=== PATIENT | male | born 1965 | race Caucasian/White ===

== ENCOUNTER 2019-09-16 09:49 | Inpatient (IN) | payer OTHER ==
[2019-09-16] MEDS ORDERED: SODIUM CHLORIDE 2,449 ML IV ONE (09:59)
--- NOTE | 2019-09-16 10:36 | EKG ---
Test Reason : Blood Pressure : / mmHG Vent. Rate : 102 BPM Atrial Rate : 102 BPM P-R Int : 132 ms QRS Dur : 072 ms QT Int : 340 ms P-R-T Axes : 064 037 036 degrees QTc Int : 443 ms SINUS TACHYCARDIA OTHERWISE NORMAL ECG NO PREVIOUS ECGS AVAILABLE Confirmed by Benjy Sam MD ([id number]) on 09/16/2019 10:35:37 AM Referred By: Confirmed By:Benjy Sam MD
[2019-09-16] MEDS ORDERED: morphine CARPU-JECT 8 MG/1 ML DISP.SYRIN IVPUSH ONE ×2 (10:41→13:01)
[2019-09-16] MEDS ORDERED: PIPERACILLIN/TAZOB 3.375 GM 3.375 GM in DEXTROSE 5%-WATER - 50 ML IVPB ONE (10:42)
[2019-09-16] MEDS ORDERED: VANCOMYCIN HCL 1,250 MG in DEXTROSE 5%-WATER - 250 ML IVPB ONE (10:42)
[2019-09-16] MEDS ORDERED: LACTATED RINGERS SOLUTION 1,000 ML/1,000 ML INFUS.BAG IV STA ×2 (10:44→16:30)
[2019-09-16] MEDS ORDERED: morphine SULFATE 4 MG/ML VIAL ONE ×2 (11:04→13:01)
[2019-09-16] MEDS ORDERED: MORPHINE SULFATE 2 MG/ML VIAL ONE ×3 (11:05→23:14)
[2019-09-16] MEDS ORDERED: PIPERACILLIN/TAZOB 3.375 GM 3.375 GM/50 ML BAG IVPB ONE ×2 (11:05→17:34)
[2019-09-16 11:49] LABS: BASO % 0.4 % (0-2.0); EOS % 0.1 % (0-4.5); HEMATOCRIT 30.1 % (35.4-49); HEMOGLOBIN 9.6 GM/dL (11.7-16.9); LYMPH % 7.6 % (8-40); MCH 26.7 pg (25.7-33.7); MCHC 31.9 g/dl (32.0-35.9); MEAN CELL VOLUME 83.7 fl (80-96); MEAN PLT VOLUME 6.8 fl (7.5-11.1); MONO % 3.7 % (3.8-10.2); NEUT % 88.2 % (42.8-82.8); PLATELET COUNT 390 K/MM3 (134-434); RDW 14.7 % (11.9-15.9); WHITE BLOOD COUNT 10.9 K/mm3 (4.0-10.0)
[2019-09-16 11:51] LABS: VENOUS O2 SATURATION 88.5 % (70-80); VENOUS PCO2 39.4 mmHg (38-52); VENOUS PH 7.397 (7.310-7.410)
--- NOTE | 2019-09-16 11:53 | PDOC ---
Documentation entered by Jessica Savage SCRIBE, acting as scribe for Beverley Yap MD. Beverley Yap MD: This documentation has been prepared by the Janette crocker Adrianna, SCRIBE, under my direction and personally reviewed by me in its entirety. I confirm that the documentation accurately reflects all work, treatment, procedures, and medical decision making performed by me. History of Present Illness - General Chief Complaint: Wound Stated Complaint: SENT FROM WOUND CARE - History of Present Illness Initial Comments: The patient is a 54 year old male, with a significant PMH of DM, peripheral vascular disease, HTN (compliant with daily meds), HLD, diverticulitis, EtOH dependence, sedative dependence, nicotine dependence, Hep C ab positive, and substance induced sleep disorder, who presents to the ED from Wound Care for evaluation of multiple abscesses. Patient complains of bilateral inguinal herni as with multiple bilateral inguinal abscesses that travel to underneath his scrotum. He states he has had these for a few weeks, and were first recognized by his PCP. He additionally complains of a tender buttocks that has a left-sided buttock abscess which he developed the past few days. Upon evaluation, the abscess began draining ~30cc unprovoked. He notes he has not been on any antibiotics at this time, and took tramadol last night for his pain . Patient has been following up with his PCP regularly for management of these complaints, who referred him to a surgical consult. Surgery stated no operative care would be pursued for his inguinal hernias until the abscesses were treated. Patients PCP advised the patient to come to the ED for CTAP and admission to the hospitalist. He endorses a fever at this time, but otherwise denies any other complaints. Denies cough, chest pain, shortness of breath, abdominal pain, nausea, vomit. Allergies: NKA, NKDA Surgical History: Colon resection for diverticulitis in 2007 Social History: EtOH dependence, sedative dependence, nicotine dependence PCP: Dr. Cueva Past History - Medical History Allergies/Adverse Reactions: Allergies Allergy/AdvReac Type Severity Reaction Status Date / Time No Known Allergies Allergy Verified 09/16/19 09:52 Home Medications: Ambulatory Orders Glipizide [Glipizide ER] 4 mg PO DAILY 01/19/14 Lisinopril [Prinivil -] 20 mg PO DAILY 01/19/14 Trazodone HCl 700 mg PO HS 01/19/14 Amlodipine Besylate 10 mg PO DAILY 09/16/19 Aspirin 81 mg PO DAILY 09/16/19 Atorvastatin Ca 40 mg PO HS 09/16/19 Invokana 100 mg PO DAILY 09/16/19 Metformin HCl 1,000 mg PO BID 09/16/19 Anemia: No Asthma: No Cancer: No Cardiac Disorders: No CVA: No COPD: No CHF: No Dementia: No Diabetes: Yes GI Disorders: Yes (diverticulitis) Disorders: No HTN: Yes Hypercholesterolemia: Yes Kidney Stones: No Liver Disease: No Seizures: No Thyroid Disease: No - Surgical History Abdominal Surgery: Yes (Colon resection for diverticulitis in 2007) - Reproductive History Testicular Surgery: No - Immunization History Immunization Up to Date: Yes - Psycho-Social/Smoking History Smoking History: Never smoked Have you smoked in the past 12 months: Yes Number of Cigarettes Smoked Daily: 20 'Breaking Loose' booklet given: 01/19/14 - Substance Abuse Hx (Audit-C & DAST Scrn) How often the patient has a drink containing alcohol: Never Score: In Men: 4 or > Positive; In Women: 3 or > Positive: 0 Screen Result (Pos requires Nsg. Audit-10AR): Negative In the last yr the pt used illegal drug/Rx for NonMed reason: No Score: Yes response is considered Positive: 0 Screen Result (Positive result requires Nsg. DAST-10): Negative Review of Systems - Review of Systems Able to Perform ROS?: Yes Comments:: GENERAL/CONSTITUTIONAL: +Fever. No chills. No weakness. HEAD, EYES, EARS, NOSE AND THROAT: No change in vision. No ear pain or discharge. No sore throat. CARDIOVASCULAR: No chest pain or shortness of breath. RESPIRATORY: No cough, wheezing, or hemoptysis. GASTROINTESTINAL: No nausea, vomiting, diarrhea or constipation. GENITOURINARY: +Multiple bilateral inguinal abscesses that travel to underneath his scrotum. +Bilateral inguinal hernias. No dysuria, frequency, or change in urination. MUSCULOSKELETAL: No joint or muscle swelling or pain. No neck or back pain. SKIN: multiple abscesses NEUROLOGIC: No headache, vertigo, loss of consciousness, or change in strength/sensation. ENDOCRINE: No increased thirst. No abnormal weight change. HEMATOLOGIC/LYMPHATIC: No anemia, easy bleeding, or history of blood clots. ALLERGIC/IMMUNOLOGIC: No hives or skin allergy. *Physical Exam - Vital Signs Last Vital Signs Temp Pulse Resp BP Pulse Ox 99.6 F 121 H 20 123/72 99 09/16/19 09:52 09/16/19 09:52 09/16/19 09:52 09/16/19 09:52 09/16/19 09:52 - Physical Exam 09/16/19 11:43 GENERAL: NAD HEAD: NCAT EYES: EOMI, sclera anicteric, conjunctiva clear ENT: nares patent, oropharynx clear without exudates. MMM NECK: Normal ROM, supple LUNGS: CTAB. Good air entry. No wheezes, No Rhonchi and no crackles HEART:tachy, + s1 s2 ABDOMEN: Soft, nontender, normoactive bowel sounds. No guarding, no rebound. No masses BACK: no midline or paraspinal tenderness. No CVA tenderness. GENITAL: multiple inguinal abscesses with some extending to perineum and mons and L medial aspect of upper thigh, no crepitus, no acitve drainage, +ttp EXTREMITIES: Warm and well perfused. No LE edema. FROM. No clubbing or cyanosis. No cords, erythema, or tenderness NEUROLOGICAL: Aox3, Speech fluent, face symmetric, tongue/uvula midline. Sensation grossly intact to light touch. No focal deficits. SKIN: ~[id number] area of induration to L buttocks with >6 cm of fluctuance with opening, during in exam began spontaneously draining ~30ccs of foul smelling purulent drainage Heart Score/ECG Review - ECG Impressions Comment:: ECG performed at 10:12 on 09/16/19 demonstrates sinus tachycardia at 102bpm. Otherwise normal ECG. ED Treatment Course - LABORATORY CBC & Chemistry Diagram: 09/16/19 10:20 09/16/19 10:20 - RADIOLOGY Radiograph Interpretation: EXAM#: TYPE/EXAM: RESULT: [id number] RAD/CHEST PA LAT Clinical information: Preadmission. Impression Unremarkable examination without evidence of acute lung disease. Reported By: Beverly Banks MD 09/16/19 11:52 EXAM#: TYPE/EXAM: RESULT: [id number] CT/ABDOMEN PELVIS CT WITH CONTR Abdomen and pelvis CT with contrast Clinical information given: abscesses r/o fistula/emma IMPRESSION: An 8 x 7 x 4 cm left buttock subcutaneous abscess is seen. Cutaneous and superficial subcutaneous soft tissue thickening is noted along the inguinal creases bilaterally as well as along the peritoneum bilaterally. Right inguinal hernia containing fat only. Mild splenomegaly. At least moderate atherosclerotic vascular calcifications. Reported By: Naseem Webber MD 09/16/19 16:00 Medical Decision Making - Critical Care Time Total Critical Care Time (minutes): 30 Critical Care Statement: The care of this patient involved high complexity decision making to prevent further life threatening deterioration of the patient's condition and/or to evaluate & treat vital organ system(s) failure or risk of failure. - Medical Decision Making 09/16/19 11:48 54 yo M here with likely sepsis (oral temp 99 but patient reports temp was 100 at wound care immediately prior to being seen) 2/2 abscess, concern for deeper space infection given multiple inguinal abscesses and suspicion for hydraadenitis and patient with systemic signs of infection. Plan: -labs -urine -wound culture sent -blood cultures -COVID testing -cxr -CT a/p -IVF -pain control as needed -vanc -zosyn -admit This clinical encounter is taking place during a federal and state health care emergency attributable to the novel Oliver Virus pandemic. The [employer] of the Department of Health and Human Services has declared, pursuant to the Public Health Service Act 319F-3 (42 U.S.C. 247d-6d), that a covered persons activities related to medical countermeasures against COVID-19 will be immune from liability under Federal and State law. 09/16/19 16:15 Labs and imaging reviewed. Repeat lactate pending. Dr. Guzmán (general surgery spine surgeon) consulted as per PMD request. Patient admitted to [facility]. Discharge - Discharge Information Problems reviewed: Yes Clinical Impression/Diagnosis: Sepsis Qualifiers: Sepsis type: sepsis due to unspecified organism Sepsis acute organ dysfunction status: unspecified Qualified Code(s): A41.9 - Sepsis, unspecified organism Condition: Stable - Admission Yes - Follow up/Referral Referrals: Xochitl Cueva MD [Primary Care Provider] - - Patient Discharge Instructions - Post Discharge Activity
[2019-09-16 12:13] LABS: ALBUMIN 2.6 g/dl (3.4-5.0); BILIRUBIN,TOTAL 0.6 mg/dL (0.2-1); BLOOD UREA NITROGEN 9.1 mg/dL (7-18); CALCIUM 8.6 mg/dL (8.5-10.1); POTASSIUM 4.4 mmol/L (3.5-5.1); TOT PROT 7.7 g/dl (6.4-8.2)
[2019-09-16] MEDS ORDERED: ACETAMINOPHEN INJECTION 100 ML IVPB ONE (13:01)
[2019-09-16 16:23] LABS: PH,URINE 5.5 (5.0-8.0); URINE APPEARANCE CLEAR; URINE BILIRUBIN NEGATIVE (NEGATIVE); URINE COLOR YELLOW; URINE GLUCOSE (UA) 1+ (NEGATIVE); URINE KETONE NEGATIVE (NEGATIVE); URINE LEUK ESTERASE NEGATIVE (NEGATIVE); URINE NITRITE NEGATIVE (NEGATIVE); URINE PROTEIN TRACE (NEGATIVE); URINE UROBILINOGEN 0.2 mg/dL (0.2-1.0)
[2019-09-16] MEDS ORDERED: HYDROmorphone HCL CARPU-JECT 2 MG/1 ML DISP.SYRIN IVPUSH ONE (16:34)
[2019-09-16] MEDS ORDERED: HYDROmorphone HCl 2 MG/ML VIAL ONE (16:46)
--- NOTE | 2019-09-16 17:06 | HP ---
CHIEF COMPLAINT: SENT BY PCP FOR FURTHER EVAL PCP: MARAH HISTORY OF PRESENT ILLNESS: The patient is a 54 year old male, with a DM, peripheral vascular disease, HTN (compliant with daily meds), HLD, diverticulitis, hx of alcohol dependence, sedative dependence, nicotine dependence, Hep C ab positive, and substance induced sleep disorder, who presents to the ED from Wound Care for evaluation of multiple abscesses. Patient complains of bilateral inguinal hernias with multiple bilateral inguinal abscesses that travel to underneath his scrotum. He states he has had these for a few weeks, and were first recognized by his PCP. Pt reports the pain progressively worsening over the past few days, and noted draibage from the area in the last 24 hours. He additionally complains of a tender buttocks that has a left-sided buttock abscess which he developed the past few days. In Ed, pt was noted to have drai nage from the left buttock wound on own. He was advised by his pcp to come to the ED for admission and further imaging Denies cough, chest pain, shortness of breath, abdominal pain, nausea, vomit. Denies any fevers or chills ER course was notable for: (1) rising lactate from 2 to now over 7 (2) left buttock abscess with active drainage (3) Recent Travel: PAST MEDICAL HISTORY: DM, PAD, HTN, HL, ALCOHOL DEPENDENCE, HEP C POSITIVE PAST SURGICAL HISTORY: S/P COLON RESECTION FOR DIVERTICULITIS Social History: Smoking: POS Former smoking hx, states he quit 1 year ago Alcohol: POS DAILY ALCOHOL USE AND DEPENDENCE in the past, no alcohol use per pt in 4-5 years Drugs: denies Allergies No Known Allergies Allergy (Verified 09/16/19 09:52) HOME MEDICATIONS: Home Medications Medication Instructions Recorded Glipizide [Glipizide ER] 4 mg PO DAILY 01/19/14 Lisinopril [Prinivil -] 20 mg PO DAILY 01/19/14 Trazodone HCl 700 mg PO HS 01/19/14 Amlodipine Besylate 10 mg PO DAILY 09/16/19 Aspirin 81 mg PO DAILY 09/16/19 Atorvastatin Ca 40 mg PO HS 09/16/19 Invokana 100 mg PO DAILY 09/16/19 Metformin HCl 1,000 mg PO BID 09/16/19 REVIEW OF SYSTEMS CONSTITUTIONAL: Absent: fever, chills, diaphoresis, generalized weakness, malaise, loss of appetite, weight change HEENT: Absent: rhinorrhea, nasal congestion, throat pain, throat swelling, difficulty swallowing, mouth swelling, ear pain, eye pain, visual changes CARDIOVASCULAR: Absent: chest pain, syncope, palpitations, irregular heart rate, lightheadedness, peripheral edema RESPIRATORY: Absent: cough, shortness of breath, dyspnea with exertion, orthopnea, wheezing, stridor, hemoptysis GASTROINTESTINAL: Absent: abdominal pain, abdominal distension, nausea, vomiting, diarrhea, constipation, melena, hematochezia GENITOURINARY: Absent: dysuria, frequency, urgency, hesitancy, hematuria, flank pain, genital pain MUSCULOSKELETAL: Absent: myalgia, arthralgia, joint swelling, back pain, neck pain SKIN: Absent: rash, itching, pallor POS LEFT BUTTOCK AND REJI GROIN PAIN, DRAINAGE FROM THE LEFT BUTTOCK WOUND HEMATOLOGIC/IMMUNOLOGIC: Absent: easy bleeding, easy bruising, lymphadenopathy, frequent infections ENDOCRINE: Absent: unexplained weight gain, unexplained weight loss, heat intolerance, cold intolerance NEUROLOGIC: Absent: headache, focal weakness or paresthesias, dizziness, unsteady gait, seizure, mental status changes, bladder or bowel incontinence PSYCHIATRIC: Absent: anxiety, depression, suicidal or homicidal ideation, hallucinations. PHYSICAL EXAMINATION Vital Signs - 24 hr 09/16/19 09/16/19 09/16/19 09:52 11:41 12:03 Temperature 99.6 F 99.4 F Pulse Rate 121 H 79 Pulse Rate [ Radial] Respiratory 20 20 Rate Blood Pressure 123/72 102/56 L Blood Pressure [Left Arm] O2 Sat by Pulse 99 99 99 Oximetry (%) 09/16/19 16:15 Temperature Pulse Rate Pulse Rate [ 69 Radial] Respiratory 20 Rate Blood Pressure Blood Pressure 134/67 [Left Arm] O2 Sat by Pulse 94 L Oximetry (%) GENERAL: Awake, alert, and fully oriented, in no acute distress. HEAD: Normal with no signs of trauma. EYES: extraocular movements intact, sclera anicteric, conjunctiva clear. No lid lag. EARS, NOSE, THROAT: Ears normal, nares patent, oropharynx clear without exudates. Moist mucous membranes. NECK: Normal range of motion, supple LUNGS: Breath sounds equal, clear to auscultation bilaterally. No wheezes, and no crackles. No accessory muscle use. DECREASED BS REJI HEART: Regular rate and rhythm, normal S1 and S2 without murmur, rub or gallop. ABDOMEN: Soft, nontender, not distended, normoactive bowel sounds, no guarding, no rebound, no masses. No hepatomegaly or splenomegaly. MUSCULOSKELETAL: Normal range of motion at all joints. No bony deformities or tenderness. No CVA tenderness. UPPER EXTREMITIES: 2+ pulses, warm, well-perfused. No cyanosis. No clubbing. No peripheral edema. LOWER EXTREMITIES: 2+ pulses, warm, well-perfused. No calf tenderness. No peripheral edema. NEUROLOGICAL: Cranial nerves II-XII intact. Normal speech. DID NOT ASSESS GAIT, BEING RULED OUT FOR COVID PSYCHIATRIC: Cooperative. Good eye contact. Appropriate mood and affect. SKIN: Warm, dry, normal turgor, no rashes noted, normal capillary refill. POS LEFT BUTTOCK ABSCESS WITH ACTIVE BLOODY AND SOME PURULENT DRAINAGE POS REJI HYDRADENITIS IN GROINS Laboratory Results - last 24 hr 09/16/19 09/16/19 09/16/19 10:20 10:20 10:20 WBC RBC Hgb Hct MCV MCH MCHC RDW Plt Count MPV Absolute Neuts (auto) Neutrophils % Lymphocytes % Monocytes % Eosinophils % Basophils % Nucleated RBC % PTT (Actin FS) 26.3 VBG pH POC VBG pCO2 POC VBG pO2 VBG HCO3 VBG O2 Sat (Silver) VBG Base Excess Sodium 132 L Potassium 4.4 Chloride 97 L Carbon Dioxide 26 Anion Gap 9 BUN 9.1 Creatinine 1.0 Est GFR (CKD-EPI)AfAm 97.08 Est GFR (CKD-EPI)NonAf 83.76 Random Glucose 271 H Lactic Acid 2.1 H Calcium 8.6 Total Bilirubin 0.6 AST 10 L ALT 10 L Alkaline Phosphatase 64 Total Protein 7.7 Albumin 2.6 L Urine Color Urine Appearance Urine pH Ur Specific Points Urine Protein Urine Glucose (UA) Urine Ketones Urine Blood Urine Nitrite Urine Bilirubin Urine Urobilinogen Ur Leukocyte Esterase Blood Type Antibody Screen 09/16/19 09/16/19 09/16/19 10:20 10:20 10:50 WBC 10.9 H RBC 3.60 L Hgb 9.6 L Hct 30.1 L D MCV 83.7 MCH 26.7 D MCHC 31.9 L RDW 14.7 Plt Count 390 D MPV 6.8 L D Absolute Neuts (auto) 9.6 H Neutrophils % 88.2 H Lymphocytes % 7.6 L Monocytes % 3.7 L Eosinophils % 0.1 Basophils % 0.4 Nucleated RBC % 0 PTT (Actin FS) VBG pH 7.397 POC VBG pCO2 39.4 POC VBG pO2 54.7 H VBG HCO3 23.7 VBG O2 Sat (Silver) 88.5 H VBG Base Excess -1.0 Sodium Potassium Chloride Carbon Dioxide Anion Gap BUN Creatinine Est GFR (CKD-EPI)AfAm Est GFR (CKD-EPI)NonAf Random Glucose Lactic Acid Calcium Total Bilirubin AST ALT Alkaline Phosphatase Total Protein Albumin Urine Color Urine Appearance Urine pH Ur Specific Points Urine Protein Urine Glucose (UA) Urine Ketones Urine Blood Urine Nitrite Urine Bilirubin Urine Urobilinogen Ur Leukocyte Esterase Blood Type AB POSITIVE Antibody Screen Negative 09/16/19 09/16/19 14:00 14:57 WBC RBC Hgb Hct MCV MCH MCHC RDW Plt Count MPV Absolute Neuts (auto) Neutrophils % Lymphocytes % Monocytes % Eosinophils % Basophils % Nucleated RBC % PTT (Actin FS) VBG pH POC VBG pCO2 POC VBG pO2 VBG HCO3 VBG O2 Sat (Silver) VBG Base Excess Sodium Potassium Chloride Carbon Dioxide Anion Gap BUN Creatinine Est GFR (CKD-EPI)AfAm Est GFR (CKD-EPI)NonAf Random Glucose Lactic Acid 7.7 H* Calcium Total Bilirubin AST ALT Alkaline Phosphatase Total Protein Albumin Urine Color Yellow Urine Appearance Clear Urine pH 5.5 Ur Specific Points 1.023 Urine Protein Trace Urine Glucose (UA) 1+ H Urine Ketones Negative Urine Blood Negative Urine Nitrite Negative Urine Bilirubin Negative Urine Urobilinogen 0.2 Ur Leukocyte Esterase Negative Blood Type Antibody Screen CT ABD/PELVIS: LEFT SC BUTTOCK ABSCESS SPLENOMEGALY AORTIC CALCIFICATIONS INGUINAL HERNIA CONTAINING FAT EKG: ST@102 BPM CXR: [facility]D ASSESSMENT/PLAN: 54 Y/O MALE WITH THE ABOVE MED HX ADMITTED WITH SEPSIS SECONDARY TO LEFT BUTTOCK ABSCESS *SEPSIS - SECONDARY TO ABSCESS SURGERY EVAL FOR DRAINAGE VANC AND ZOSYN, BLOOD CULTURES DRAWN LACTACTE RISING, WILL BOLUS FLUIDS NOW AND HYDRATE MORE AGGRESSIVELY AFEBRILE *TOBACCO AND ALCOHOL USE -- PT DENIES ANY RECENT USE, MONITOR FOR ANY SIGNS OF WITHDRAWAL *DM: HOLD ORAL AGENTS,PLACE ON ISS *HTN - BP CURRENTLY STABLE NORVASC AND LISINOPRIL WITH BP PARAMETERS *DVT PROPHY - LOVENOX DAILY AWAIT COVID RESULTS Family Medical History Family Hx Cancer: Father (LUNG CANCER) Problem List - Problem (1) Sepsis Code(s): A41.9 - SEPSIS, UNSPECIFIED ORGANISM Qualifiers: Sepsis type: sepsis due to unspecified organism Sepsis acute organ dysfunction status: unspecified Qualified Code(s): A41.9 - Sepsis, unspecified organism (2) DM type 2 (diabetes mellitus, type 2) Code(s): E11.9 - TYPE 2 DIABETES MELLITUS WITHOUT COMPLICATIONS (3) Abscess and cellulitis of gluteal region Code(s): L02.31 - CUTANEOUS ABSCESS OF BUTTOCK; L03.317 - CELLULITIS OF BUTTOCK Visit type - Emergency Visit Emergency Visit: Yes ED Registration Date: 09/16/19 Care time: The patient presented to the Emergency Department on the above date and was hospitalized for further evaluation of their emergent condition. - New Patient This patient is new to me today: Yes Date on this admission: 09/16/19 - Critical Care Critical Care patient: No
[2019-09-16] MEDS ORDERED: ENOXAPARIN NA (PORCINE) 40 MG/0.4 ML DISP.SYRIN SQ ONE (17:33)
[2019-09-16] MEDS: ENOXAPARIN NA (PORCINE) 40 MG/0.4 ML DISP.SYRIN SQ SCH (17:45)
[2019-09-16] MEDS: PIPERACILLIN/TAZOB 3.375 GM 3.375 GM in DEXTROSE 5%-WATER - 50 ML IVPB SCH (17:45)
[2019-09-16] MEDS ORDERED: SODIUM CHLORIDE 0.9% 500 ML INFUS.BAG IV STA (18:35)
[2019-09-16] MEDS: SODIUM CHLORIDE 1,000 ML IV SCH (19:15)
[2019-09-16] MEDS: MORPHINE SULFATE 2 MG/ML VIAL IVPUSH PRN (22:25)
[2019-09-16] MEDS: INSULIN SLIDING SCALE (NOVOLOG) 1 VIAL SQ SCH (22:34)
[2019-09-16] MEDS ORDERED: ACETAMINOPHEN 1000 MG/100 ML VIAL (NON FORMULARY) IVPB PRN (22:50)
[2019-09-16] MEDS ORDERED: KETOROLAC TROMETHAMINE 15 MG/ML VIAL IVPUSH PRN (22:50)
[2019-09-16] MEDS ORDERED: MORPHINE SULFATE 2 MG/ML VIAL IVPUSH ONE (22:51)
[2019-09-17 01:39] VITALS: BMI 26.4
[2019-09-17] MEDS: MORPHINE SULFATE 2 MG/ML VIAL IVPUSH PRN ×3 (02:10→14:21)
[2019-09-17] MEDS ORDERED: DEXTROSE 5%-WATER - 50 ML IVPB ONE ×3 (02:32→18:00)
[2019-09-17] MEDS ORDERED: PIPERACILLIN/TAZOBACTAM 3.375 GM VIAL IVPB ONE ×3 (02:32→18:00)
[2019-09-17] MEDS: PIPERACILLIN/TAZOB 3.375 GM 3.375 GM in DEXTROSE 5%-WATER - 50 ML IVPB SCH ×3 (02:56→18:07)
[2019-09-17] MEDS: INSULIN SLIDING SCALE (NOVOLOG) 1 VIAL SQ SCH ×4 (06:12→22:29)
[2019-09-17] MEDS: ATORVASTATIN CA 40 MG TABLET (FP) PO SCH ×2 (07:22→22:31)
[2019-09-17 08:10] LABS: HEMATOCRIT 23.3 % (35.4-49); HEMOGLOBIN 7.5 GM/dL (11.7-16.9); MCH 26.9 pg (25.7-33.7); MCHC 32.1 g/dl (32.0-35.9); MEAN CELL VOLUME 83.7 fl (80-96); MEAN PLT VOLUME 6.3 fl (7.5-11.1); PLATELET COUNT 255 K/MM3 (134-434); RBC 2.79 M/mm3 (4.00-5.60); RDW 14.6 % (11.9-15.9); WHITE BLOOD COUNT 6.3 K/mm3 (4.0-10.0)
[2019-09-17 08:23] LABS: BLOOD UREA NITROGEN 11.1 mg/dL (7-18); CALCIUM 7.8 mg/dL (8.5-10.1); CREATININE 0.8 mg/dL (0.55-1.3); POTASSIUM 4.3 mmol/L (3.5-5.1)
--- NOTE | 2019-09-17 09:35 | PN ---
Teaching Attending Note Name of Resident: Pablo Hamilton ATTENDING PHYSICIAN STATEMENT I saw and evaluated the patient. I reviewed the resident's note and discussed the case with the resident. I agree with the resident's findings and plan as documented. SUBJECTIVE: Patient is asking for more pain medication. He states his pain is 8/10 OBJECTIVE: Vital Signs Temperature 98.7 F 09/17/19 06:53 Pulse Rate 88 09/17/19 06:53 Respiratory Rate 20 09/17/19 06:53 Blood Pressure 113/60 09/17/19 06:53 O2 Sat by Pulse Oximetry (%) 96 09/17/19 01:47 Initial Vital Signs Temp Pulse Resp BP Pulse Ox 99.6 F 121 H 20 123/72 99 09/16/19 09:52 09/16/19 09:52 09/16/19 09:52 09/16/19 09:52 09/16/19 09:52 PE:per resident's note BL groin hydraadenetis ( no active drainage) draining open left buttock abscess CBCD WBC 6.3 K/mm3 (4.0-10.0) 09/17/19 07:10 RBC 2.79 M/mm3 (4.00-5.60) L 09/17/19 07:10 Hgb 7.5 GM/dL (11.7-16.9) L 09/17/19 07:10 Hct 23.3 % (35.4-49) L D 09/17/19 07:10 MCV 83.7 fl (80-96) 09/17/19 07:10 MCHC 32.1 g/dl (32.0-35.9) 09/17/19 07:10 RDW 14.6 % (11.9-15.9) 09/17/19 07:10 Plt Count 255 K/MM3 (134-434) D 09/17/19 07:10 MPV 6.3 fl (7.5-11.1) L 09/17/19 07:10 CMP Sodium 139 mmol/L (136-145) 09/17/19 07:10 Potassium 4.3 mmol/L (3.5-5.1) 09/17/19 07:10 Chloride 107 mmol/L (98-107) 09/17/19 07:10 Carbon Dioxide 23 mmol/L (21-32) 09/17/19 07:10 Anion Gap 9 MMOL/L (8-16) 09/17/19 07:10 BUN 11.1 mg/dL (7-18) 09/17/19 07:10 Creatinine 0.8 mg/dL (0.55-1.3) 09/17/19 07:10 Random Glucose 127 mg/dL (74-106) H 09/17/19 07:10 Calcium 7.8 mg/dL (8.5-10.1) L 09/17/19 07:10 Total Bilirubin 0.6 mg/dL (0.2-1) 09/16/19 10:20 AST 10 U/L (15-37) L 09/16/19 10:20 ALT 10 U/L (13-61) L 09/16/19 10:20 Alkaline Phosphatase 64 U/L (45-117) 09/16/19 10:20 Total Protein 7.7 g/dl (6.4-8.2) 09/16/19 10:20 Albumin 2.6 g/dl (3.4-5.0) L 09/16/19 10:20 Current Medications Generic Name Dose Route Start Last Admin Trade Name Freq PRN Reason Stop Dose Admin Acetaminophen 650 mg 09/16/19 17:14 Tylenol - PO Q4H PRN FEVER Acetaminophen 1,000 mg 09/16/19 22:50 Ofirmev Injection - IVPB 09/17/19 22:50 Q6H PRN PAIN LEVEL 6-10 Amlodipine Besylate 10 mg 09/17/19 10:00 Norvasc - PO DAILY [facility] Aspirin 81 mg 09/17/19 10:00 Ecotrin - PO DAILY [facility] Atorvastatin Calcium 40 mg 09/16/19 23:45 09/17/19 07:22 Lipitor - PO Not Given HS ADRIA Enoxaparin Sodium 40 mg 09/16/19 17:30 09/16/19 17:45 Lovenox - SQ 40 mg DAILY [facility] Administration Hydromorphone HCl 1 mg 09/16/19 18:45 Dilaudid Injection - IVPUSH Q8H ADRIA Piperacillin Sod/Tazobactam 50 mls @ 100 mls/hr 09/17/19 10:00 Sod 3.375 gm/ Dextrose IVPB Q8H-IV ADRIA Protocol Sodium Chloride 1,000 mls @ 100 mls/hr 09/16/19 18:45 09/16/19 19:15 Normal Saline - IV 100 mls/hr ASDIR ADRIA Administration Insulin Aspart 1 vial 09/16/19 22:00 09/17/19 06:12 Novolog Vial Sliding Scale - SQ Not Given ACHS [facility] Protocol Lisinopril 20 mg 09/17/19 10:00 Prinivil PO DAILY ADRIA Morphine Sulfate 2 mg 09/16/19 17:14 09/17/19 06:10 Morphine Sulfate IVPUSH 2 mg Q4H PRN Administration PAIN LEVEL 6-10 Non-Formulary Medication 700 mg 09/17/19 22:00 Trazodone Hcl [Trazodone Hcl] PO HS [facility] Microbiology 09/16/19 10:20 Abscess Gram Stain - Final Laboratory Tests 09/16/19 09/16/19 09/16/19 10:20 10:20 10:20 WBC 10.9 H Lactic Acid 2.1 H COVID-19 ([facility]) Pending 09/16/19 09/16/19 09/17/19 14:57 22:05 06:00 WBC Lactic Acid 7.7 H* 2.2 H* 1.9 COVID-19 ([facility]) CT ABD/PELVIS: 8x7x4 cm LEFT SC BUTTOCK ABSCESS, cutaneous superficial sq soft tissue thickening is noted along the inguinal creases bl as well as along the peritoneum Bilaterally. No abvious fistula is noted mild SPLENOMEGALY moderate atherosclerotic vascular CALCIFICATIONS Right INGUINAL HERNIA CONTAINING FAT EKG: ST@102 BPM CXR: [facility] ASSESSMENT/PLAN: This patient is a 54yom with PMhx of T2DM, PVD,HTN,NLD, diverticulitis , alcohol ,sedative, nicotine dependency,Hep C ab positive, admitted for sepsis with left Buttock abscess from Wound Care for evaluation of multiple abscesses in ED. # Sepsis due to multiple abscesses; on IV antibiotics, vanco and zosyn, follow wcx, bcx, ucx., ID onthe case, will like to get HIV testing on this patient. #hydraadenetis bilaterally bl inguinal area ( no drainage) : surgical and ID consult for I&D and antibiotic management. IVF continue #T2DM on SS with coverage for now, hold po meds #HTN controlled: on Lisinopril and norvsc continue # tobacco and ETOH dependency: NO RECENT USE #Covid Pending DVT PROPHY - LOVENOX SQ
[2019-09-17] MEDS ORDERED: PATIENT'S OWN MEDICATION (NON-FORMULARY) (Aspirin 81 MG) PO SCH (10:00)
[2019-09-17] MEDS ORDERED: PATIENT'S OWN MEDICATION (NON-FORMULARY) (Amlodipine Besylate 10 MG) PO SCH (10:00)
[2019-09-17] MEDS ORDERED: PIPERACILLIN/TAZOB 3.375 GM 3.375 GM in DEXTROSE 5%-WATER - 50 ML IVPB SCH (10:00)
[2019-09-17] MEDS ORDERED: HYDROmorphone HCl 2 MG/ML VIAL IVPB PRN (10:15)
[2019-09-17] MEDS: ASPIRIN COATED 81 MG TABLET.EC PO SCH (10:15)
[2019-09-17] MEDS: amLODIPine BESYLATE 10 MG TABLET (FP) PO SCH (10:16)
[2019-09-17] MEDS: LISINOPRIL 20 MG TABLET (FP) PO SCH (10:16)
[2019-09-17] MEDS: ENOXAPARIN NA (PORCINE) 40 MG/0.4 ML DISP.SYRIN SQ SCH (10:16)
[2019-09-17] MEDS ORDERED: VANCOMYCIN 1 GRAM (PRE-DOCKED) 1,000 MG/250 ML BAG IVPB ONE (11:15)
[2019-09-17] MEDS ORDERED: PIPERACILLIN/TAZOB 3.375 GM 3.375 GM in DEXTROSE 5%-WATER - 50 ML IVPB ONE (11:16)
--- NOTE | 2019-09-17 12:46 | CON.ID ---
Consult Consult Specialty:: infectious diseases Referred by:: Reason for Consultation:: left gluteal abscess - History of Present Illness Chief Complaint: pain and swelling with cellulitis of the left glueteal region History of Present Illness: 54 year old male, with a DM, peripheral vascular disease, HTN , HLD, diverticu litis, hx of alcohol dependence, sedative dependence, nicotine dependence, Hep C ab positive, and substance induced sleep disorder, who presents from [facility] for evaluation of multiple abscesses. Patient complains of bilateral inguinal hernias with multiple bilateral inguinal abscesses that travel to underneath his scrotum. He states he has had these for a few weeks, and were first recognized by his PCP. Pt reports the pain progressively worsening over the past few days, and noted drainage from the area in the last 24 hours. He additionally complains of a tender buttocks that has a left-sided buttock abscess which he developed the past few days. drainage from the left buttock wound on own. He was advised by his pcp to come to the ED for admission and further imaging currently patients wound is draining - History Source History Provided By: Patient Limitations to Obtaining History: No Limitations - Alcohol/Substance Use Hx Alcohol Use: Yes - Smoking History Smoking history: Former smoker Have you smoked in the past 12 months: Yes Aproximately how many cigarettes per day: 20 Home Medications - Allergies Allergies/Adverse Reactions: Allergies Allergy/AdvReac Type Severity Reaction Status Date / Time No Known Allergies Allergy Verified 09/16/19 09:52 - Home Medications Home Medications: Ambulatory Orders Glipizide [Glipizide ER] 4 mg PO DAILY 01/19/14 Lisinopril [Prinivil -] 20 mg PO DAILY 01/19/14 Trazodone HCl 700 mg PO HS 01/19/14 Amlodipine Besylate 10 mg PO DAILY 09/16/19 Aspirin 81 mg PO DAILY 09/16/19 Atorvastatin Ca 40 mg PO HS 09/16/19 Invokana 100 mg PO DAILY 09/16/19 Metformin HCl 1,000 mg PO BID 09/16/19 Review of Systems - Review of Systems Constitutional: reports: No Symptoms Eyes: reports: No Symptoms HENT: reports: No Symptoms Neck: reports: No Symptoms Cardiovascular: reports: No Symptoms Respiratory: reports: No Symptoms Gastrointestinal: reports: No Symptoms Genitourinary: reports: No Symptoms Musculoskeletal: reports: Other Integumentary: reports: Erythema, Wound, Other Endocrine: reports: No Symptoms Hematology/Lymphatic: reports: No Symptoms Psychiatric: reports: No Symptoms Physical Exam Vital Signs: Vital Signs Temperature 98.9 F 09/17/19 10:00 Pulse Rate 63 09/17/19 10:00 Respiratory Rate 20 09/17/19 10:00 Blood Pressure 117/58 L 09/17/19 10:00 O2 Sat by Pulse Oximetry (%) 96 09/17/19 09:00 Constitutional: Yes: Well Nourished, No Distress, Calm Eyes: Yes: Conjunctiva Clear, EOM Intact Cardiovascular: Yes: Regular Rate and Rhythm Respiratory: Yes: Regular, CTA Bilaterally Gastrointestinal: Yes: Normal Bowel Sounds, Soft Renal/: Yes: Other (left gluteal swelling and cellulitis and abscess with open spot present with drainage) Musculoskeletal: Yes: WNL Wound/Incision: Yes: Dressing Removed, Draining, Other (wound drainaing) Neurological: Yes: Alert, Oriented Psychiatric: Yes: Alert, Oriented Labs: CBC, BMP 09/17/19 07:10 09/17/19 07:10 Imaging - Results Chest X-ray: Report Reviewed, Image Reviewed Cat Scan: Report Reviewed, Image Reviewed Assessment/Plan left buttock abscess and cellulitis dm htn etoh abuse plan surgery to see the patient will continue abx monitor for etoh withdrawl rest as per the team
[2019-09-17] MEDS ORDERED: VANCOMYCIN 1,000 MG in DEXTROSE 5%-WATER - 250 ML IVPB SCH (13:00)
[2019-09-17] MEDS: VANCOMYCIN 1 GRAM (PRE-DOCKED) 1,000 MG/250 ML BAG IVPB SCH (13:32)
[2019-09-17] MEDS ORDERED: LIDOCAINE HCL 1%, 10 MG/ML (20ML VIAL) NR ONE (14:54)
--- NOTE | 2019-09-17 15:03 | CONSULT ---
Consult Consult Specialty:: surgery Reason for Consultation:: abcess - History of Present Illness Chief Complaint: pain History of Present Illness: 54 yr old male with long histoury of hydraadenetis presents with pain inthe gluteal region - History Source History Provided By: Patient - Alcohol/Substance Use Hx Alcohol Use: Yes - Smoking History Smoking history: Former smoker Have you smoked in the past 12 months: Yes Aproximately how many cigarettes per day: 20 Home Medications - Allergies Allergies/Adverse Reactions: Allergies Allergy/AdvReac Type Severity Reaction Status Date / Time No Known Allergies Allergy Verified 09/16/19 09:52 - Home Medications Home Medications: Ambulatory Orders Glipizide [Glipizide ER] 4 mg PO DAILY 01/19/14 Lisinopril [Prinivil -] 20 mg PO DAILY 01/19/14 Trazodone HCl 700 mg PO HS 01/19/14 Amlodipine Besylate 10 mg PO DAILY 09/16/19 Aspirin 81 mg PO DAILY 09/16/19 Atorvastatin Ca 40 mg PO HS 09/16/19 Invokana 100 mg PO DAILY 09/16/19 Metformin HCl 1,000 mg PO BID 09/16/19 Physical Exam Vital Signs: Vital Signs Temperature 99.6 F 09/17/19 13:56 Pulse Rate 62 09/17/19 13:56 Respiratory Rate 20 09/17/19 13:56 Blood Pressure 97/56 L 09/17/19 13:56 O2 Sat by Pulse Oximetry (%) 96 09/17/19 09:00 Labs: CBC, BMP 09/17/19 07:10 09/17/19 07:10 Imaging - Results Cat Scan: Report Reviewed, Image Reviewed Problem List - Problems (1) Abscess and cellulitis of gluteal region Code(s): L02.31 - CUTANEOUS ABSCESS OF BUTTOCK; L03.317 - CELLULITIS OF BUTTOCK Assessment/Plan spntaneously drained abcess with some cellulitis currently afebrile plan for bed side I&D
--- NOTE | 2019-09-17 15:07 | PROC ---
Procedure Note Procedure: under local anesthesia and steile conditions incision and drainage of a gluteal abcess performed without complications Wound irrigated and packed. Patient tolerated procedure well
[2019-09-17] MEDS: SODIUM CHLORIDE 1,000 ML IV SCH (18:07)
[2019-09-17] MEDS: HYDROmorphone HCl 2 MG/ML VIAL IVPB PRN ×2 (18:08→22:31)
--- NOTE | 2019-09-17 19:32 | PN ---
Physical Exam: SUBJECTIVE: No overnight events. Patient seen and examined. Pt had pain on L buttock. Pt was given morphine and hydromorphone (dilaudid). ROS negative except as above. OBJECTIVE: Vital Signs Period Temp Pulse Resp BP Sys/Bennett Pulse Ox Last 24 Hr 98.5 F-99.6 F 59-88 20-20 97-117/50-60 96-98 GENERAL: The patient is awake, alert, and fully oriented HEENT: NT, NC LUNGS: Breath sounds equal, clear to auscultation bilaterally, no wheezes, no crackles, no accessory muscle use. HEART: Regular rate and rhythm, S1, S2 without murmur, rub or gallop. ABDOMEN: Soft, nontender, nondistended, normoactive bowel sounds, no guarding, no rebound, no hepatosplenomegaly, no masses. EXTREMITIES: Inguinal lymphnodes enlarged b/l; purple skin tag in inguinal crease. Abscess on Left buttock draining purulent and mildly bloody material. Not TTP. NEUROLOGICAL: Normal speech, gait not observed. PSYCH: normal affect. SKIN: Warm, dry, normal turgor, no rashes or lesions noted Laboratory Results - last 24 hr 09/16/19 09/16/19 09/17/19 22:05 22:19 05:58 WBC RBC Hgb Hct MCV MCH MCHC RDW Plt Count MPV Sodium Potassium Chloride Carbon Dioxide Anion Gap BUN Creatinine Est GFR (CKD-EPI)AfAm Est GFR (CKD-EPI)NonAf POC Glucometer 148 129 Random Glucose Lactic Acid 2.2 H* Calcium 09/17/19 09/17/19 09/17/19 06:00 07:10 07:10 WBC 6.3 RBC 2.79 L Hgb 7.5 L Hct 23.3 L D MCV 83.7 MCH 26.9 MCHC 32.1 RDW 14.6 Plt Count 255 D MPV 6.3 L Sodium 139 Potassium 4.3 Chloride 107 Carbon Dioxide 23 Anion Gap 9 BUN 11.1 Creatinine 0.8 Est GFR (CKD-EPI)AfAm 115.74 Est GFR (CKD-EPI)NonAf 99.86 POC Glucometer Random Glucose 127 H Lactic Acid 1.9 Calcium 7.8 L 09/17/19 09/17/19 11:51 17:01 WBC RBC Hgb Hct MCV MCH MCHC RDW Plt Count MPV Sodium Potassium Chloride Carbon Dioxide Anion Gap BUN Creatinine Est GFR (CKD-EPI)AfAm Est GFR (CKD-EPI)NonAf POC Glucometer 139 108 Random Glucose Lactic Acid Calcium Active Medications Generic Name Dose Route Start Last Admin Trade Name Freq PRN Reason Stop Dose Admin Acetaminophen 650 mg 09/16/19 17:14 Tylenol - PO Q4H PRN FEVER Amlodipine Besylate 10 mg 09/17/19 10:00 09/17/19 10:16 Norvasc - PO 10 mg DAILY [facility] Administration Aspirin 81 mg 09/17/19 10:00 09/17/19 10:15 Ecotrin - PO Not Given DAILY [facility] Atorvastatin Calcium 40 mg 09/16/19 23:45 09/17/19 07:22 Lipitor - PO Not Given HS [facility] Enoxaparin Sodium 40 mg 09/16/19 17:30 09/17/19 10:16 Lovenox - SQ Not Given DAILY [facility] Hydromorphone HCl 1 mg 09/17/19 17:36 09/17/19 18:08 Dilaudid Vial - IVPB 1 mg Q4H PRN Administration PAIN LEVEL 8 - 10 Sodium Chloride 1,000 mls @ 100 mls/hr 09/16/19 18:45 09/17/19 18:07 Normal Saline - IV Not Given ASDIR [facility] Piperacillin Sod/Tazobactam 50 mls @ 100 mls/hr 09/17/19 13:00 09/17/19 18:07 Sod 3.375 gm/ Dextrose IVPB 100 mls/hr Q8H-IV [facility] Administration Protocol Vancomycin HCl 1,000 mg in 250 mls @ 200 mls/hr 09/17/19 13:29 09/17/19 13:32 Vancomycin (Pre-Docked) IVPB Not Given Q24H [facility] Protocol Insulin Aspart 1 vial 09/16/19 22:00 09/17/19 17:39 Novolog Vial Sliding Scale - SQ Not Given ACHS [facility] Protocol Lisinopril 20 mg 09/17/19 10:00 09/17/19 10:16 Prinivil PO Not Given DAILY [facility] Trazodone HCl 700 mg 09/17/19 22:00 Desyrel - PO HS [facility] Lactic acid: 2.1 >7.7> 1.9 (09/16) CT abd: 8X7X4 cm L buttock subcutaneous abscess. Cutaneous & superficial Subcutaneous soft tissue thickening along inguinal creases b/l as well as along peritoneum b/l. CXR: no acute pathlogy COVID negative ASSESSMENT/PLAN: 54 YO M PMH PVD, DM, HLD, HTN, diverticulitis, EtOH/sedative/nicotine dependence, substance induced sleep disorder, & Hep C ab positive who presents with inguinal abscesses & hernias, and an abscess on L buttock with drainage. Suspicion for hydraadenitis. Admitted for sepsis 2/2 to cellulitis. #Sepsis 2/2 to Cellulitis Abscess on Left buttock -lactic acid 1.9 now. Will monitor lactic acid -ID consult appreciated. Surgery performed I&D. -c/w vanc & Piperacillin / Tazobactam -Leukocytosis on admission. Will monitor WBC -refused HIV testing #DM ISS Hgb A1C ordered. #HTN: c/w amlodipine 10 mg PO #HLD: c/w atorvastatin 40 mg PO #PVD: c/w aspirin 81 mg #FEN -Lactate Ringer's -monitor lytes -Diabetic diet #DVT ppx -Lovenox 40 mg SQ #DISPO maintain on med surg Visit type - Emergency Visit Emergency Visit: Yes ED Registration Date: 09/16/19 Care time: The patient presented to the Emergency Department on the above date and was hospitalized for further evaluation of their emergent condition. - New Patient This patient is new to me today: Yes Date on this admission: 09/16/19 - Critical Care Critical Care patient: No ATTENDING PHYSICIAN STATEMENT I saw and evaluated the patient. I reviewed the resident's note and discussed the case with the resident. I agree with the resident's findings and plan as documented. SUBJECTIVE: OBJECTIVE: ASSESSMENT AND PLAN:
[2019-09-17] MEDS ORDERED: PATIENT'S OWN MEDICATION (NON-FORMULARY) (Atorvastatin Ca 40 MG) PO SCH (22:00)
[2019-09-17] MEDS: ACETAMINOPHEN 325 MG TABLET (FP) PO PRN ×2 (22:28→23:11)
[2019-09-17] MEDS: traZODone HCL 100 MG TABLET (FP) PO SCH ×2 (22:29→23:00)
[2019-09-18] MEDS ORDERED: PIPERACILLIN/TAZOBACTAM 3.375 GM VIAL IVPB ONE ×3 (02:35→16:42)
[2019-09-18] MEDS ORDERED: DEXTROSE 5%-WATER - 50 ML IVPB ONE ×3 (02:35→16:42)
[2019-09-18] MEDS: HYDROmorphone HCl 2 MG/ML VIAL IVPB PRN ×6 (03:01→22:28)
[2019-09-18] MEDS: PIPERACILLIN/TAZOB 3.375 GM 3.375 GM in DEXTROSE 5%-WATER - 50 ML IVPB SCH ×3 (03:03→17:33)
[2019-09-18] MEDS: INSULIN SLIDING SCALE (NOVOLOG) 1 VIAL SQ SCH ×4 (06:53→21:26)
--- NOTE | 2019-09-18 10:00 | PN ---
Progress Note (short form) - Note Progress Note: GENERAL SURGERY Day 1 s/p bedside i&d of left buttock abscess Alert. C/o mild incisional tenderness. Adequate pain control with meds ordered. Denies n/v/f/c, CP, palpitations, SOB or REED Last Vital Signs Temp Pulse Resp BP Pulse Ox 98.3 F 56 L 20 106/60 96 09/18/19 05:31 09/18/19 05:31 09/18/19 05:09/18/19 05:09/17/19 21:00 Gen: a&o. nad Left Glute: steallate incision. packing removed. wound irrigated and repacked on rounds Problem List - Problems (1) Left buttock abscess Assessment/Plan: Wound repacked on rounds, dressing orders placed VNS ordered as he will need daily wound packing wet to dry Tight glycemic control -- Insulin Sliding Scale diabetic diet cleared for dc home once VNS established When ready for dc, he will need PO abx -- ID/Bobde to make recommendations. Cont medical management No further surgical input, re-consult prn Pt to f/u with Dr. Polanco as outlined in DC PLAN section. Above plan discussed with my attending and agrees. On behalf of Dr. Polanco, thank you for the opportunity to participate in your patient's care. Code(s): L02.31 - CUTANEOUS ABSCESS OF BUTTOCK (2) Alcohol dependence Code(s): F10.20 - ALCOHOL DEPENDENCE, UNCOMPLICATED (3) DM type 2 (diabetes mellitus, type 2) Code(s): E11.9 - TYPE 2 DIABETES MELLITUS WITHOUT COMPLICATIONS (4) Hepatitis C Code(s): B19.20 - UNSPECIFIED VIRAL HEPATITIS C WITHOUT HEPATIC COMA (5) Nicotine dependence Code(s): F17.200 - NICOTINE DEPENDENCE, UNSPECIFIED, UNCOMPLICATED
[2019-09-18] MEDS: amLODIPine BESYLATE 10 MG TABLET (FP) PO SCH (10:26)
[2019-09-18] MEDS: ASPIRIN COATED 81 MG TABLET.EC PO SCH (10:26)
[2019-09-18] MEDS: ENOXAPARIN NA (PORCINE) 40 MG/0.4 ML DISP.SYRIN SQ SCH (10:26)
[2019-09-18] MEDS: LISINOPRIL 20 MG TABLET (FP) PO SCH (10:26)
[2019-09-18 10:35] LABS: HEMATOCRIT 22.2 % (35.4-49); HEMOGLOBIN 7.2 GM/dL (11.7-16.9); MCH 27.4 pg (25.7-33.7); MCHC 32.3 g/dl (32.0-35.9); MEAN CELL VOLUME 84.9 fl (80-96); MEAN PLT VOLUME 6.1 fl (7.5-11.1); PLATELET COUNT 275 K/MM3 (134-434); RBC 2.61 M/mm3 (4.00-5.60); RDW 14.2 % (11.9-15.9); WHITE BLOOD COUNT 6.1 K/mm3 (4.0-10.0)
[2019-09-18 11:10] LABS: ALBUMIN 1.8 g/dl (3.4-5.0); BILIRUBIN,TOTAL 0.2 mg/dL (0.2-1); BLOOD UREA NITROGEN 9.6 mg/dL (7-18); CALCIUM 7.9 mg/dL (8.5-10.1); CREATININE 0.9 mg/dL (0.55-1.3); MAGNESIUM 2.3 mg/dL (1.8-2.4); PHOSPHOROUS 3.2 mg/dL (2.5-4.9); POTASSIUM 4.5 mmol/L (3.5-5.1); TOT PROT 5.8 g/dl (6.4-8.2)
[2019-09-18] MEDS: SODIUM CHLORIDE 1,000 ML IV SCH ×2 (13:37→19:35)
[2019-09-18] MEDS: VANCOMYCIN 1 GRAM (PRE-DOCKED) 1,000 MG/250 ML BAG IVPB SCH (13:37)
--- NOTE | 2019-09-18 15:21 | PN ---
Progress Note, Physician History of Present Illness: Pt denies pain at Lt buttock incision site but just received pain medication. + copious serosanguinous drainage on dressing. Tmax 99.2F. + purulent drainage from Rt periscrotal site with discomfort on palpation. - Current Medication List Current Medications: Active Medications Acetaminophen (Tylenol -) 650 mg PO Q4H PRN PRN Reason: FEVER Last Admin: 09/17/19 23:11 Dose: 650 mg Documented by: Amlodipine Besylate (Norvasc -) 10 mg PO DAILY [facility] Last Admin: 09/18/19 10:26 Dose: 10 mg Documented by: Aspirin (Ecotrin -) 81 mg PO DAILY [facility] Last Admin: 09/18/19 10:26 Dose: 81 mg Documented by: Atorvastatin Calcium (Lipitor -) 40 mg PO HS [facility] Last Admin: 09/17/19 22:31 Dose: 40 mg Documented by: Enoxaparin Sodium (Lovenox -) 40 mg SQ DAILY [facility] Last Admin: 09/18/19 10:26 Dose: 40 mg Documented by: Hydromorphone HCl (Dilaudid Vial -) 1 mg IVPB Q4H PRN PRN Reason: PAIN LEVEL 8 - 10 Last Admin: 09/18/19 14:33 Dose: 1 mg Documented by: Sodium Chloride (Normal Saline -) 1,000 mls @ 100 mls/hr IV ASDIR [facility] Last Admin: 09/18/19 13:37 Dose: 100 mls/hr Documented by: Piperacillin Sod/Tazobactam (Sod 3.375 gm/ Dextrose) 50 mls @ 100 mls/hr IVPB Q8H-IV [facility]; Protocol Last Admin: 09/18/19 10:26 Dose: 100 mls/hr Documented by: Vancomycin HCl (Vancomycin (Pre-Docked)) 1,000 mg in 250 mls @ 200 mls/hr IVPB Q24H [facility]; Protocol Last Admin: 09/18/19 13:37 Dose: 200 mls/hr Documented by: Insulin Aspart (Novolog Vial Sliding Scale -) 1 vial SQ ACHS [facility]; Protocol Last Admin: 09/18/19 11:35 Dose: 2 units Documented by: Lisinopril (Prinivil) 20 mg PO DAILY [facility] Last Admin: 09/18/19 10:26 Dose: 20 mg Documented by: Trazodone HCl (Desyrel -) 700 mg PO HS [facility] Last Admin: 09/17/19 23:00 Dose: Not Given Documented by: - Objective Vital Signs: Vital Signs Temperature 98.7 F 09/18/19 13:00 Pulse Rate 62 09/18/19 13:00 Respiratory Rate 20 09/18/19 13:00 Blood Pressure 110/57 L 09/18/19 13:00 O2 Sat by Pulse Oximetry (%) 96 09/18/19 09:00 Constitutional: Yes: No Distress, Calm Cardiovascular: Yes: Regular Rate and Rhythm Respiratory: Yes: Regular Gastrointestinal: Yes: Normal Bowel Sounds, Soft Genitourinary: Yes: Other (healed b/l inguinal wounds, +upper Rt scrotal mild induration +pus expressed) Wound/Incision: Yes: Other (Lt buttock wound with packing, +serosanguinous drainage, mild surrounding induration without significant erythema) Neurological: Yes: Alert, Oriented Labs: CBC, BMP 09/18/19 09:49 09/18/19 09:49 Laboratory Last Values WBC 6.1 K/mm3 (4.0-10.0) 09/18/19 09:49 RBC 2.61 M/mm3 (4.00-5.60) L 09/18/19 09:49 Hgb 7.2 GM/dL (11.7-16.9) L 09/18/19 09:49 Hct 22.2 % (35.4-49) L 09/18/19 09:49 MCV 84.9 fl (80-96) 09/18/19 09:49 MCH 27.4 pg (25.7-33.7) 09/18/19 09:49 MCHC 32.3 g/dl (32.0-35.9) 09/18/19 09:49 RDW 14.2 % (11.9-15.9) 09/18/19 09:49 Plt Count 275 K/MM3 (134-434) 09/18/19 09:49 MPV 6.1 fl (7.5-11.1) L 09/18/19 09:49 Absolute Neuts (auto) 9.6 K/mm3 (1.5-8.0) H 09/16/19 10:20 Neutrophils % 88.2 % (42.8-82.8) H 09/16/19 10:20 Lymphocytes % 7.6 % (8-40) L 09/16/19 10:20 Monocytes % 3.7 % (3.8-10.2) L 09/16/19 10:20 Eosinophils % 0.1 % (0-4.5) 09/16/19 10:20 Basophils % 0.4 % (0-2.0) 09/16/19 10:20 Nucleated RBC % 0 % (0-0) 09/16/19 10:20 PTT (Actin FS) 26.3 SECONDS (25.2-36.5) 09/16/19 10:20 VBG pH 7.397 (7.310-7.410) 09/16/19 10:50 POC VBG pCO2 39.4 mmHg (38-52) 09/16/19 10:50 POC VBG pO2 54.7 mmHg (28-48) H 09/16/19 10:50 VBG HCO3 23.7 mmol/L (23-29) 09/16/19 10:50 VBG O2 Sat (Silver) 88.5 % (70-80) H 09/16/19 10:50 VBG Base Excess -1.0 mmol/L (-2-2) 09/16/19 10:50 Sodium 139 mmol/L (136-145) 09/18/19 09:49 Potassium 4.5 mmol/L (3.5-5.1) 09/18/19 09:49 Chloride 106 mmol/L (98-107) 09/18/19 09:49 Carbon Dioxide 29 mmol/L (21-32) 09/18/19 09:49 Anion Gap 4 MMOL/L (8-16) L 09/18/19 09:49 BUN 9.6 mg/dL (7-18) 09/18/19 09:49 Creatinine 0.9 mg/dL (0.55-1.3) 09/18/19 09:49 Est GFR (CKD-EPI)AfAm 110.27 09/18/19 09:49 Est GFR (CKD-EPI)NonAf 95.14 09/18/19 09:49 POC Glucometer 171 UNITS (80-120) 09/18/19 11:33 Random Glucose 171 mg/dL (74-106) H 09/18/19 09:49 Lactic Acid 1.9 mmol/L (0.4-2.0) 09/17/19 06:00 Calcium 7.9 mg/dL (8.5-10.1) L 09/18/19 09:49 Phosphorus 3.2 mg/dL (2.5-4.9) 09/18/19 09:49 Magnesium 2.3 mg/dL (1.8-2.4) 09/18/19 09:49 Total Bilirubin 0.2 mg/dL (0.2-1) 09/18/19 09:49 AST 7 U/L (15-37) L 09/18/19 09:49 ALT 7 U/L (13-61) L 09/18/19 09:49 Alkaline Phosphatase 44 U/L (45-117) L 09/18/19 09:49 Total Protein 5.8 g/dl (6.4-8.2) L 09/18/19 09:49 Albumin 1.8 g/dl (3.4-5.0) L 09/18/19 09:49 Urine Color Yellow 09/16/19 14:00 Urine Appearance Clear 09/16/19 14:00 Urine pH 5.5 (5.0-8.0) 09/16/19 14:00 Ur Specific [place] 1.023 (1.010-1.035) 09/16/19 14:00 Urine Protein Trace (NEGATIVE) 09/16/19 14:00 Urine Glucose (UA) 1+ (NEGATIVE) H 09/16/19 14:00 Urine Ketones Negative (NEGATIVE) 09/16/19 14:00 Urine Blood Negative (NEGATIVE) 09/16/19 14:00 Urine Nitrite Negative (NEGATIVE) 09/16/19 14:00 Urine Bilirubin Negative (NEGATIVE) 09/16/19 14:00 Urine Urobilinogen 0.2 mg/dL (0.2-1.0) 09/16/19 14:00 Ur Leukocyte Esterase Negative (NEGATIVE) 09/16/19 14:00 COVID-19 ([facility]) Not detected (Not Detected) 09/16/19 10:20 Blood Type AB POSITIVE 09/16/19 10:20 Antibody Screen Negative 09/16/19 10:20 Microbiology 09/16/19 10:20 Abscess Gram Stain - Final 09/16/19 10:20 Abscess Wound Culture - Preliminary Strep Agalactiae Group B Group D Strep Or Entero Coccus Pending Organism 09/16/19 10:50 Blood - Peripheral Venous Blood Culture - Preliminary NO GROWTH OBTAINED AFTER 48 HOURS, INCUBATION TO CONTINUE FOR 3 DAYS. 09/16/19 10:20 Blood - Peripheral Venous Blood Culture - Preliminary NO GROWTH OBTAINED AFTER 48 HOURS, INCUBATION TO CONTINUE FOR 3 DAYS. 09/16/19 14:00 Urine - Urine Clean Catch Urine Culture - Final NO GROWTH OBTAINED Problem List - Problems (1) Left buttock abscess Code(s): L02.31 - CUTANEOUS ABSCESS OF BUTTOCK (2) Alcohol dependence Code(s): F10.20 - ALCOHOL DEPENDENCE, UNCOMPLICATED (3) DM type 2 (diabetes mellitus, type 2) Code(s): E11.9 - TYPE 2 DIABETES MELLITUS WITHOUT COMPLICATIONS (4) Sedative dependence Code(s): F13.20 - SEDATIVE, HYPNOTIC OR ANXIOLYTIC DEPENDENCE, UNCOMPLICATED (5) H/O hidradenitis suppurativa Code(s): Z87.2 - PERSONAL HISTORY OF DISEASES OF THE SKIN, SUBCU (6) Hepatitis C Code(s): B19.20 - UNSPECIFIED VIRAL HEPATITIS C WITHOUT HEPATIC COMA (7) Nicotine dependence Code(s): F17.200 - NICOTINE DEPENDENCE, UNSPECIFIED, UNCOMPLICATED Assessment/Plan Lt buttock abscess s/p I+D Rt upper scotal purulence/small abscess Hx of hydraadenitis DM Hep C + ETOH/sedative/nicotine dependence -- f/u final wound culture isolates, blood cultures neg 48h -- send wound culture from Rt scrotal purulent wound -- monitor temp trend -- leukocytosis resolved -- if no resistant organisms isolated from cultures and pt with continued improvement will switch to po antibiotics. -- continue wound care, surgical follow up
--- NOTE | 2019-09-18 16:04 | PN ---
Physical Exam: SUBJECTIVE: Patient seen and examined at bedside in no acute distress OBJECTIVE: Vital Signs Period Temp Pulse Resp BP Sys/Bennett Pulse Ox Last 24 Hr 98.3 F-99.2 F 56-62 18-20 101-110/46-60 96-96 GENERAL: The patient is awake, alert, and fully oriented, in no acute distress. HEAD: Normal with no signs of trauma. LUNGS: Breath sounds equal, clear to auscultation bilaterally, no wheezes, no crackles, no accessory muscle use. HEART: Regular rate and rhythm, S1, S2 without murmur, rub or gallop. ABDOMEN: Soft, nontender, nondistended, normoactive bowel sounds, no guarding EXTREMITIES: 2+ pulses, warm, well-perfused, no edema. Groin hyperpigmented tender lesions b/l L gluteal abcess draining wound Laboratory Last Values WBC 6.1 K/mm3 (4.0-10.0) 09/18/19 09:49 RBC 2.61 M/mm3 (4.00-5.60) L 09/18/19 09:49 Hgb 7.2 GM/dL (11.7-16.9) L 09/18/19 09:49 Hct 22.2 % (35.4-49) L 09/18/19 09:49 MCV 84.9 fl (80-96) 09/18/19 09:49 MCH 27.4 pg (25.7-33.7) 09/18/19 09:49 MCHC 32.3 g/dl (32.0-35.9) 09/18/19 09:49 RDW 14.2 % (11.9-15.9) 09/18/19 09:49 Plt Count 275 K/MM3 (134-434) 09/18/19 09:49 MPV 6.1 fl (7.5-11.1) L 09/18/19 09:49 Absolute Neuts (auto) 9.6 K/mm3 (1.5-8.0) H 09/16/19 10:20 Neutrophils % 88.2 % (42.8-82.8) H 09/16/19 10:20 Lymphocytes % 7.6 % (8-40) L 09/16/19 10:20 Monocytes % 3.7 % (3.8-10.2) L 09/16/19 10:20 Eosinophils % 0.1 % (0-4.5) 09/16/19 10:20 Basophils % 0.4 % (0-2.0) 09/16/19 10:20 Nucleated RBC % 0 % (0-0) 09/16/19 10:20 PTT (Actin FS) 26.3 SECONDS (25.2-36.5) 09/16/19 10:20 VBG pH 7.397 (7.310-7.410) 09/16/19 10:50 POC VBG pCO2 39.4 mmHg (38-52) 09/16/19 10:50 POC VBG pO2 54.7 mmHg (28-48) H 09/16/19 10:50 VBG HCO3 23.7 mmol/L (23-29) 09/16/19 10:50 VBG O2 Sat (Silver) 88.5 % (70-80) H 09/16/19 10:50 VBG Base Excess -1.0 mmol/L (-2-2) 09/16/19 10:50 Sodium 139 mmol/L (136-145) 09/18/19 09:49 Potassium 4.5 mmol/L (3.5-5.1) 09/18/19 09:49 Chloride 106 mmol/L (98-107) 09/18/19 09:49 Carbon Dioxide 29 mmol/L (21-32) 09/18/19 09:49 Anion Gap 4 MMOL/L (8-16) L 09/18/19 09:49 BUN 9.6 mg/dL (7-18) 09/18/19 09:49 Creatinine 0.9 mg/dL (0.55-1.3) 09/18/19 09:49 Est GFR (CKD-EPI)AfAm 110.27 09/18/19 09:49 Est GFR (CKD-EPI)NonAf 95.14 09/18/19 09:49 POC Glucometer 171 UNITS (80-120) 09/18/19 11:33 Random Glucose 171 mg/dL (74-106) H 09/18/19 09:49 Lactic Acid 1.9 mmol/L (0.4-2.0) 09/17/19 06:00 Calcium 7.9 mg/dL (8.5-10.1) L 09/18/19 09:49 Phosphorus 3.2 mg/dL (2.5-4.9) 09/18/19 09:49 Magnesium 2.3 mg/dL (1.8-2.4) 09/18/19 09:49 Total Bilirubin 0.2 mg/dL (0.2-1) 09/18/19 09:49 AST 7 U/L (15-37) L 09/18/19 09:49 ALT 7 U/L (13-61) L 09/18/19 09:49 Alkaline Phosphatase 44 U/L (45-117) L 09/18/19 09:49 Total Protein 5.8 g/dl (6.4-8.2) L 09/18/19 09:49 Albumin 1.8 g/dl (3.4-5.0) L 09/18/19 09:49 Urine Color Yellow 09/16/19 14:00 Urine Appearance Clear 09/16/19 14:00 Urine pH 5.5 (5.0-8.0) 09/16/19 14:00 Ur Specific [place] 1.023 (1.010-1.035) 09/16/19 14:00 Urine Protein Trace (NEGATIVE) 09/16/19 14:00 Urine Glucose (UA) 1+ (NEGATIVE) H 09/16/19 14:00 Urine Ketones Negative (NEGATIVE) 09/16/19 14:00 Urine Blood Negative (NEGATIVE) 09/16/19 14:00 Urine Nitrite Negative (NEGATIVE) 09/16/19 14:00 Urine Bilirubin Negative (NEGATIVE) 09/16/19 14:00 Urine Urobilinogen 0.2 mg/dL (0.2-1.0) 09/16/19 14:00 Ur Leukocyte Esterase Negative (NEGATIVE) 09/16/19 14:00 COVID-19 ([facility]) Not detected (Not Detected) 09/16/19 10:20 Blood Type AB POSITIVE 09/16/19 10:20 Antibody Screen Negative 09/16/19 10:20 Active Medications Generic Name Dose Route Start Last Admin Trade Name Freq PRN Reason Stop Dose Admin Acetaminophen 650 mg 09/16/19 17:14 09/17/19 23:11 Tylenol - PO 650 mg Q4H PRN Administration FEVER Amlodipine Besylate 10 mg 09/17/19 10:00 09/18/19 10:26 Norvasc - PO 10 mg DAILY ADRIA Administration Aspirin 81 mg 09/17/19 10:00 09/18/19 10:26 Ecotrin - PO 81 mg DAILY AD[facility]A Administration Atorvastatin Calcium 40 mg 09/16/19 23:45 09/17/19 22:31 Lipitor - PO 40 mg HS ADRIA Administration Enoxaparin Sodium 40 mg 09/16/19 17:30 09/18/19 10:26 Lovenox - SQ 40 mg DAILY ADRIA Administration Hydromorphone HCl 1 mg 09/17/19 17:36 09/18/19 14:33 Dilaudid Vial - IVPB 1 mg Q4H PRN Administration PAIN LEVEL 8 - 10 Sodium Chloride 1,000 mls @ 100 mls/hr 09/16/19 18:45 09/18/19 13:37 Normal Saline - IV 100 mls/hr ASDIR ADRIA Administration Piperacillin Sod/Tazobactam 50 mls @ 100 mls/hr 09/17/19 13:00 09/18/19 10:26 Sod 3.375 gm/ Dextrose IVPB 100 mls/hr Q8H-IV [facility]A Administration Protocol Vancomycin HCl 1,000 mg in 250 mls @ 200 mls/hr 09/17/19 13:29 09/18/19 13:37 Vancomycin (Pre-Docked) IVPB 200 mls/hr Q24H AD[facility]A Administration Protocol Insulin Aspart 1 vial 09/16/19 22:00 09/18/19 11:35 Novolog Vial Sliding Scale - SQ 2 units ACHS ADRIA Administration Protocol Lisinopril 20 mg 09/17/19 10:00 09/18/19 10:26 Prinivil PO 20 mg DAILY ADRIA Administration Trazodone HCl 700 mg 09/17/19 22:00 09/17/19 23:00 Desyrel - PO Not Given HS ADRIA ASSESSMENT/PLAN: 54 yo M PMH PVD, DM, HLD, HTN, diverticulitis, hx of polysubstance abuse, substance induced sleep disorder, & Hep C ab positive who presents with sepsis 2/2 cellulitis with abscess on L buttock. Sepsis 2/2 to Cellulitis/Abscess on Left buttock -lactic acidosis improved. leukocytosis improved -ID consult appreciated. Surgery performed I&D 09/16. -c/w vanc, zosyn day 2 as per ID, will change to PO once we get wound cx results -refused HIV testing DM -ISS, BGM -will get Hgb A1C Anemia - cont to monitor, will order iron studies HTN: -c/w amlodipine 10 mg PO, lisinopril 20 HLD - c/w atorvastatin 40 mg PO DVT ppx:Lovenox 40 mg SQ DISPO: maintain on med surg Visit type - Emergency Visit Emergency Visit: No - New Patient This patient is new to me today: No - Critical Care Critical Care patient: No - Discharge Referral Referred to [facility] Med P.C.: No ATTENDING PHYSICIAN STATEMENT I saw and evaluated the patient. I reviewed the resident's note and discussed the case with the resident. I agree with the resident's findings and plan as documented. SUBJECTIVE: OBJECTIVE: ASSESSMENT AND PLAN:
--- NOTE | 2019-09-18 17:33 | PN ---
Teaching Attending Note Name of Resident: Latasha Jarrell ATTENDING PHYSICIAN STATEMENT I saw and evaluated the patient. I reviewed the resident's note and discussed the case with the resident. I agree with the resident's findings and plan as documented. SUBJECTIVE: Patient is better today, with no acute distress, pain is better controlled. OBJECTIVE: Vital Signs Temperature 98.7 F 09/18/19 13:00 Pulse Rate 62 09/18/19 13:00 Respiratory Rate 20 09/18/19 13:00 Blood Pressure 110/57 L 09/18/19 13:00 O2 Sat by Pulse Oximetry (%) 96 09/18/19 09:00 PE: per resident's note CBCD WBC 6.1 K/mm3 (4.0-10.0) 09/18/19 09:49 RBC 2.61 M/mm3 (4.00-5.60) L 09/18/19 09:49 Hgb 7.2 GM/dL (11.7-16.9) L 09/18/19 09:49 Hct 22.2 % (35.4-49) L 09/18/19 09:49 MCV 84.9 fl (80-96) 09/18/19 09:49 MCHC 32.3 g/dl (32.0-35.9) 09/18/19 09:49 RDW 14.2 % (11.9-15.9) 09/18/19 09:49 Plt Count 275 K/MM3 (134-434) 09/18/19 09:49 MPV 6.1 fl (7.5-11.1) L 09/18/19 09:49 CMP Sodium 139 mmol/L (136-145) 09/18/19 09:49 Potassium 4.5 mmol/L (3.5-5.1) 09/18/19 09:49 Chloride 106 mmol/L (98-107) 09/18/19 09:49 Carbon Dioxide 29 mmol/L (21-32) 09/18/19 09:49 Anion Gap 4 MMOL/L (8-16) L 09/18/19 09:49 BUN 9.6 mg/dL (7-18) 09/18/19 09:49 Creatinine 0.9 mg/dL (0.55-1.3) 09/18/19 09:49 Random Glucose 171 mg/dL (74-106) H 09/18/19 09:49 Calcium 7.9 mg/dL (8.5-10.1) L 09/18/19 09:49 Total Bilirubin 0.2 mg/dL (0.2-1) 09/18/19 09:49 AST 7 U/L (15-37) L 09/18/19 09:49 ALT 7 U/L (13-61) L 09/18/19 09:49 Alkaline Phosphatase 44 U/L (45-117) L 09/18/19 09:49 Total Protein 5.8 g/dl (6.4-8.2) L 09/18/19 09:49 Albumin 1.8 g/dl (3.4-5.0) L 09/18/19 09:49 Current Medications Generic Name Dose Route Start Last Admin Trade Name Freq PRN Reason Stop Dose Admin Acetaminophen 650 mg 09/16/19 17:14 09/17/19 23:11 Tylenol - PO 650 mg Q4H PRN Administration FEVER Amlodipine Besylate 10 mg 09/17/19 10:00 09/18/19 10:26 Norvasc - PO 10 mg DAILY ADRIA Administration Aspirin 81 mg 09/17/19 10:00 09/18/19 10:26 Ecotrin - PO 81 mg DAILY ADRIA Administration Atorvastatin Calcium 40 mg 09/16/19 23:45 09/17/19 22:31 Lipitor - PO 40 mg HS ADRIA Administration Enoxaparin Sodium 40 mg 09/16/19 17:30 09/18/19 10:26 Lovenox - SQ 40 mg DAILY ADRIA Administration Hydromorphone HCl 1 mg 09/17/19 17:36 09/18/19 14:33 Dilaudid Vial - IVPB 1 mg Q4H PRN Administration PAIN LEVEL 8 - 10 Sodium Chloride 1,000 mls @ 100 mls/hr 09/16/19 18:45 09/18/19 13:37 Normal Saline - IV 100 mls/hr ASDIR ADRIA Administration Piperacillin Sod/Tazobactam 50 mls @ 100 mls/hr 09/17/19 13:00 09/18/19 10:26 Sod 3.375 gm/ Dextrose IVPB 100 mls/hr Q8H-IV ADRIA Administration Protocol Vancomycin HCl 1,000 mg in 250 mls @ 200 mls/hr 09/17/19 13:29 09/18/19 13:37 Vancomycin (Pre-Docked) IVPB 200 mls/hr Q24H ADRIA Administration Protocol Insulin Aspart 1 vial 09/16/19 22:00 09/18/19 16:52 Novolog Vial Sliding Scale - SQ 2 units ACHS ADRIA Administration Protocol Lisinopril 20 mg 09/17/19 10:00 09/18/19 10:26 Prinivil PO 20 mg DAILY ADRIA Administration Trazodone HCl 700 mg 09/17/19 22:00 09/17/19 23:00 Desyrel - PO Not Given HS [facility] Home Medications Medication Instructions Recorded Glipizide [Glipizide ER] 4 mg PO DAILY 01/19/14 Lisinopril [Prinivil -] 20 mg PO DAILY 01/19/14 Trazodone HCl 700 mg PO HS 01/19/14 Amlodipine Besylate 10 mg PO DAILY 09/16/19 Aspirin 81 mg PO DAILY 09/16/19 Atorvastatin Ca 40 mg PO HS 09/16/19 Invokana 100 mg PO DAILY 09/16/19 Metformin HCl 1,000 mg PO BID 09/16/19 CT ABD/PELVIS: 8x7x4 cm LEFT SC BUTTOCK ABSCESS, cutaneous superficial sq soft tissue thickening is noted along the inguinal creases bl as well as along the peritoneum Bilaterally. No abvious fistula is noted mild SPLENOMEGALY moderate atherosclerotic vascular CALCIFICATIONS Right INGUINAL HERNIA CONTAINING FAT EKG: ST@102 BPM CXR: NAPD Microbiology 09/16/19 10:20 Abscess Gram Stain - Final 09/16/19 10:20 Abscess Wound Culture - Preliminary Strep Agalactiae Group B Group D Strep Or Entero Coccus Pending Organism 09/16/19 10:50 Blood - Peripheral Venous Blood Culture - Preliminary NO GROWTH OBTAINED AFTER 48 HOURS, INCUBATION TO CONTINUE FOR 3 DAYS. 09/16/19 10:20 Blood - Peripheral Venous Blood Culture - Preliminary NO GROWTH OBTAINED AFTER 48 HOURS, INCUBATION TO CONTINUE FOR 3 DAYS. 09/16/19 14:00 Urine - Urine Clean Catch Urine Culture - Final NO GROWTH OBTAINED ASSESSMENT/PLAN: This patient is a 54yom with PMhx of T2DM, PVD,HTN,NLD, diverticulitis , alcohol ,sedative, nicotine dependency,Hep C ab positive, admitted for sepsis with left Buttock abscess from Wound Care for evaluation of multiple abscesses in ED. # Sepsis due to Lt buttock abscess s/p I+D ; on IV antibiotics, vanco and zosyn, follow wcx, bcx, ucx., ID on the case, will like to get HIV testing on this patient. Pain contorl dilaudid continue #hydraadenetis bilaterally bl inguinal area ( no drainage) : surgical and ID consult for I&D and antibiotic management. IVF continue #Rt upper scotal purulence/small abscess on i v antibiotic continue #T2DM on SS with coverage for now, hold po meds #HTN controlled: on Lisinopril and norvsc continue # tobacco and ETOH dependency: NO RECENT USE #Covid Pending DVT PROPHY - LOVENOX SQ
[2019-09-18] MEDS ORDERED: INSULIN (NOVOLOG) ASPART 100 UNITS/ML 10ML VIAL ONE (21:15)
[2019-09-18] MEDS: traZODone HCL 100 MG TABLET (FP) PO SCH (21:24)
[2019-09-18] MEDS: ATORVASTATIN CA 40 MG TABLET (FP) PO SCH (21:24)
[2019-09-19] MEDS ORDERED: PIPERACILLIN/TAZOBACTAM 3.375 GM VIAL IVPB ONE ×3 (01:23→17:59)
[2019-09-19] MEDS ORDERED: DEXTROSE 5%-WATER - 50 ML IVPB ONE ×3 (01:23→17:59)
[2019-09-19] MEDS: PIPERACILLIN/TAZOB 3.375 GM 3.375 GM in DEXTROSE 5%-WATER - 50 ML IVPB SCH ×3 (01:29→18:01)
[2019-09-19] MEDS: HYDROmorphone HCl 2 MG/ML VIAL IVPB PRN ×6 (02:31→23:15)
[2019-09-19] MEDS: INSULIN SLIDING SCALE (NOVOLOG) 1 VIAL SQ SCH ×5 (06:08→23:17)
[2019-09-19] MEDS: SODIUM CHLORIDE 1,000 ML IV SCH ×2 (06:33→20:14)
[2019-09-19 09:24] LABS: BASO % 0.6 % (0-2.0); EOS % 1.7 % (0-4.5); HEMATOCRIT 24.1 % (35.4-49); HEMOGLOBIN 7.6 GM/dL (11.7-16.9); LYMPH % 25.9 % (8-40); MCH 26.6 pg (25.7-33.7); MCHC 31.6 g/dl (32.0-35.9); MEAN CELL VOLUME 84.3 fl (80-96); MEAN PLT VOLUME 6.3 fl (7.5-11.1); MONO % 5.8 % (3.8-10.2); PLATELET COUNT 268 K/MM3 (134-434); RBC 2.85 M/mm3 (4.00-5.60); RDW 14.7 % (11.9-15.9); WHITE BLOOD COUNT 6.2 K/mm3 (4.0-10.0)
[2019-09-19 09:53] LABS: ALBUMIN 1.8 g/dl (3.4-5.0); BLOOD UREA NITROGEN 10.2 mg/dL (7-18); CALCIUM 7.9 mg/dL (8.5-10.1); MAGNESIUM 2.3 mg/dL (1.8-2.4); POTASSIUM 3.6 mmol/L (3.5-5.1)
[2019-09-19 09:58] LABS: BILIRUBIN,TOTAL 0.2 mg/dL (0.2-1); CREATININE 0.8 mg/dL (0.55-1.3); TOT PROT 5.8 g/dl (6.4-8.2)
[2019-09-19] MEDS: ENOXAPARIN NA (PORCINE) 40 MG/0.4 ML DISP.SYRIN SQ SCH (10:41)
[2019-09-19] MEDS: LISINOPRIL 20 MG TABLET (FP) PO SCH (10:42)
[2019-09-19] MEDS: amLODIPine BESYLATE 10 MG TABLET (FP) PO SCH (10:42)
[2019-09-19] MEDS: ASPIRIN COATED 81 MG TABLET.EC PO SCH (10:42)
--- NOTE | 2019-09-19 12:31 | PN ---
Progress Note (short form) - Note Progress Note: Patient is comfortable, wound continues to drain. Vital Signs Temperature 98.7 F 09/19/19 09:00 Pulse Rate 58 L 09/19/19 09:00 Respiratory Rate 18 09/19/19 09:00 Blood Pressure 98/54 L 09/19/19 09:00 O2 Sat by Pulse Oximetry (%) 96 09/18/19 21:00 Initial Vital Signs Temp Pulse Resp BP Pulse Ox 99.6 F 121 H 20 123/72 99 09/16/19 09:52 09/16/19 09:52 09/16/19 09:52 09/16/19 09:52 09/16/19 09:52 GENERAL: The patient is awake, alert, and fully oriented, in no acute distress. HEAD: Normal with no signs of trauma. EYES: PERRL, extraocular movements intact, sclera anicteric, conjunctiva clear. ENT: Ears normal, oropharynx clear without exudates, moist mucous membranes. NECK: Trachea midline, full range of motion, supple. LUNGS: Breath sounds equal, clear to auscultation bilaterally, no wheezes, no crackles, no accessory muscle use. HEART: Regular rate and rhythm, S1, S2 without murmur, rub or gallop. ABDOMEN: Soft, nontender, nondistended, normoactive bowel sounds, no guarding, no rebound, no hepatosplenomegaly, no masses. EXTREMITIES: 2+ pulses, warm, well-perfused, no edema. NEUROLOGICAL: Cranial nerves II through XII grossly intact. Normal speech, gait not observed. PSYCH: Normal mood, normal affect. SKIN: Warm, dry, normal turgor, no rashes or lesions noted : drainaging well CBCD WBC 6.2 K/mm3 (4.0-10.0) 09/19/19 08:40 RBC 2.85 M/mm3 (4.00-5.60) L 09/19/19 08:40 Hgb 7.6 GM/dL (11.7-16.9) L 09/19/19 08:40 Hct 24.1 % (35.4-49) L 09/19/19 08:40 MCV 84.3 fl (80-96) 09/19/19 08:40 MCHC 31.6 g/dl (32.0-35.9) L 09/19/19 08:40 RDW 14.7 % (11.9-15.9) 09/19/19 08:40 Plt Count 268 K/MM3 (134-434) 09/19/19 08:40 MPV 6.3 fl (7.5-11.1) L 09/19/19 08:40 CMP Sodium 140 mmol/L (136-145) 09/19/19 08:40 Potassium 3.6 mmol/L (3.5-5.1) 09/19/19 08:40 Chloride 108 mmol/L (98-107) H 09/19/19 08:40 Carbon Dioxide 23 mmol/L (21-32) 09/19/19 08:40 Anion Gap 9 MMOL/L (8-16) 09/19/19 08:40 BUN 10.2 mg/dL (7-18) 09/19/19 08:40 Creatinine 0.8 mg/dL (0.55-1.3) 09/19/19 08:40 Random Glucose 153 mg/dL (74-106) H 09/19/19 08:40 Calcium 7.9 mg/dL (8.5-10.1) L 09/19/19 08:40 Total Bilirubin 0.2 mg/dL (0.2-1) 09/19/19 08:40 AST 10 U/L (15-37) L 09/19/19 08:40 ALT 11 U/L (13-61) L 09/19/19 08:40 Alkaline Phosphatase 45 U/L (45-117) 09/19/19 08:40 Total Protein 5.8 g/dl (6.4-8.2) L 09/19/19 08:40 Albumin 1.8 g/dl (3.4-5.0) L 09/19/19 08:40 Current Medications Generic Name Dose Route Start Last Admin Trade Name Freq PRN Reason Stop Dose Admin Acetaminophen 650 mg 09/16/19 17:14 09/17/19 23:11 Tylenol - PO 650 mg Q4H PRN Administration FEVER Amlodipine Besylate 10 mg 09/17/19 10:00 09/19/19 10:42 Norvasc - PO 10 mg DAILY ADRIA Administration Aspirin 81 mg 09/17/19 10:00 09/19/19 10:42 Ecotrin - PO 81 mg DAILY ADRIA Administration Atorvastatin Calcium 40 mg 09/16/19 23:45 09/18/19 21:24 Lipitor - PO 40 mg HS ADRIA Administration Enoxaparin Sodium 40 mg 09/16/19 17:30 09/19/19 10:41 Lovenox - SQ 40 mg DAILY ADRIA Administration Hydromorphone HCl 1 mg 09/17/19 17:36 09/19/19 10:30 Dilaudid Vial - IVPB 1 mg Q4H PRN Administration PAIN LEVEL 8 - 10 Sodium Chloride 1,000 mls @ 100 mls/hr 09/16/19 18:45 09/19/19 06:33 Normal Saline - IV 100 mls/hr ASDIR ADRIA Administration Piperacillin Sod/Tazobactam 50 mls @ 100 mls/hr 09/17/19 13:00 09/19/19 10:41 Sod 3.375 gm/ Dextrose IVPB 100 mls/hr Q8H-IV ADRIA Administration Protocol Vancomycin HCl 1,000 mg in 250 mls @ 200 mls/hr 09/17/19 13:29 09/18/19 13:37 Vancomycin (Pre-Docked) IVPB 200 mls/hr Q24H ADRIA Administration Protocol Insulin Aspart 1 vial 09/16/19 22:00 09/19/19 11:43 Novolog Vial Sliding Scale - SQ Not Given ACHS [facility] Protocol Lisinopril 20 mg 09/17/19 10:00 09/19/19 10:42 Prinivil PO 20 mg DAILY ADRIA Administration Trazodone HCl 700 mg 09/17/19 22:00 09/18/19 21:24 Desyrel - PO 700 mg HS ADRIA Administration Home Medications Medication Instructions Recorded Glipizide [Glipizide ER] 4 mg PO DAILY 01/19/14 Lisinopril [Prinivil -] 20 mg PO DAILY 01/19/14 Trazodone HCl 700 mg PO HS 01/19/14 Amlodipine Besylate 10 mg PO DAILY 09/16/19 Aspirin 81 mg PO DAILY 09/16/19 Atorvastatin Ca 40 mg PO HS 09/16/19 Invokana 100 mg PO DAILY 09/16/19 Metformin HCl 1,000 mg PO BID 09/16/19 Microbiology 09/16/19 10:50 Blood - Peripheral Venous Blood Culture - Preliminary NO GROWTH OBTAINED AFTER 72 HOURS, INCUBATION TO CONTINUE FOR 2 DAYS. 09/16/19 10:20 Blood - Peripheral Venous Blood Culture - Preliminary NO GROWTH OBTAINED AFTER 72 HOURS, INCUBATION TO CONTINUE FOR 2 DAYS. 09/16/19 10:20 Abscess Gram Stain - Final 09/16/19 10:20 Abscess Wound Culture - Preliminary Strep Agalactiae Group B Streptococcus Bovis 09/16/19 14:00 Urine - Urine Clean Catch Urine Culture - Final NO GROWTH OBTAINED CT ABD/PELVIS: 8x7x4 cm LEFT SC BUTTOCK ABSCESS, cutaneous superficial sq soft tissue thickening is noted along the inguinal creases bl as well as along the peritoneum Bilaterally. No abvious fistula is noted mild SPLENOMEGALY moderate atherosclerotic vascular CALCIFICATIONS Right INGUINAL HERNIA CONTAINING FAT EKG: ST@102 BPM CXR: NAPD ASSESSMENT/PLAN: This patient is a 54yom with PMhx of T2DM, PVD,HTN,NLD, diverticulitis , alcohol ,sedative, nicotine dependency,Hep C ab positive, admitted for sepsis with left Buttock abscess from Wound Care for evaluation of multiple abscesses in ED. # Sepsis due to Lt buttock abscess s/p I+D ; on IV antibiotics growing strept agalatiae and strept.bovis, on vanco and zosyn, follow wcx, bcx, ucx., ID on the case, will like to get HIV testing on this patient. Pain control dilaudid continue , will order echo and colonoscopy as an outpatient. #hydraadenetis bilaterally bl inguinal area ( no drainage) : surgical and ID consult for I&D and antibiotic management. IVF continue #Rt upper scotal purulence/small abscess on i v antibiotic continue #T2DM on SS with coverage for now, hold po meds #HTN controlled: on Lisinopril and norvsc continue # tobacco and ETOH dependency: NO RECENT USE #Covid Pending DVT PROPHY - LOVENOX SQ echo colonoscopy as an outpatient Visit type - Emergency Visit Emergency Visit: Yes ED Registration Date: 09/16/19 Care time: The patient presented to the Emergency Department on the above date and was hospitalized for further evaluation of their emergent condition. - New Patient This patient is new to me today: No - Critical Care Critical Care patient: No - Discharge Referral Referred to [facility] Med P.C.: No
[2019-09-19] MEDS: VANCOMYCIN 1 GRAM (PRE-DOCKED) 1,000 MG/250 ML BAG IVPB SCH (13:18)
--- NOTE | 2019-09-19 18:20 | PN ---
Progress Note, Physician History of Present Illness: No new complaints. Afebrile, pain controlled. - Current Medication List Current Medications: Active Medications Acetaminophen (Tylenol -) 650 mg PO Q4H PRN PRN Reason: FEVER Last Admin: 09/17/19 23:11 Dose: 650 mg Documented by: Amlodipine Besylate (Norvasc -) 10 mg PO DAILY [facility] Last Admin: 09/19/19 10:42 Dose: 10 mg Documented by: Aspirin (Ecotrin -) 81 mg PO DAILY [facility] Last Admin: 09/19/19 10:42 Dose: 81 mg Documented by: Atorvastatin Calcium (Lipitor -) 40 mg PO HS [facility] Last Admin: 09/18/19 21:24 Dose: 40 mg Documented by: Enoxaparin Sodium (Lovenox -) 40 mg SQ DAILY [facility] Last Admin: 09/19/19 10:41 Dose: 40 mg Documented by: Hydromorphone HCl (Dilaudid Vial -) 1 mg IVPB Q4H PRN PRN Reason: PAIN LEVEL 8 - 10 Last Admin: 09/19/19 18:14 Dose: 1 mg Documented by: Sodium Chloride (Normal Saline -) 1,000 mls @ 100 mls/hr IV [facility]IR [facility] Last Admin: 09/19/19 06:33 Dose: 100 mls/hr Documented by: Piperacillin Sod/Tazobactam (Sod 3.375 gm/ Dextrose) 50 mls @ 100 mls/hr IVPB Q8H-IV [facility]; Protocol Last Admin: 09/19/19 18:01 Dose: 100 mls/hr Documented by: Vancomycin HCl (Vancomycin (Pre-Docked)) 1,000 mg in 250 mls @ 200 mls/hr IVPB Q24H [facility]; Protocol Last Admin: 09/19/19 13:18 Dose: 200 mls/hr Documented by: Insulin Aspart (Novolog Vial Sliding Scale -) 1 vial SQ ACHS [facility]; Protocol Last Admin: 09/19/19 16:58 Dose: Not Given Documented by: Lisinopril (Prinivil) 20 mg PO DAILY [facility] Last Admin: 09/19/19 10:42 Dose: 20 mg Documented by: Trazodone HCl (Desyrel -) 700 mg PO HS [facility] Last Admin: 09/18/19 21:24 Dose: 700 mg Documented by: - Objective Vital Signs: Vital Signs Temperature 98.6 F 07/04/20 13:39 Pulse Rate 60 09/19/19 13:39 Respiratory Rate 18 09/19/19 13:39 Blood Pressure 99/56 L 09/19/19 13:39 O2 Sat by Pulse Oximetry (%) 96 09/19/19 09:00 Constitutional: Yes: No Distress, Calm Cardiovascular: Yes: Regular Rate and Rhythm Respiratory: Yes: Regular Gastrointestinal: Yes: Normal Bowel Sounds, Soft Genitourinary: Yes: Other (scrotal small collection, purulent discharge with pressure) Wound/Incision: Yes: Dressing Dry and Intact Labs: CBC, BMP 09/19/19 08:40 09/19/19 08:40 Laboratory Last Values WBC 6.2 K/mm3 (4.0-10.0) 09/19/19 08:40 RBC 2.85 M/mm3 (4.00-5.60) L 09/19/19 08:40 Hgb 7.6 GM/dL (11.7-16.9) L 09/19/19 08:40 Hct 24.1 % (35.4-49) L 09/19/19 08:40 MCV 84.3 fl (80-96) 09/19/19 08:40 MCH 26.6 pg (25.7-33.7) 09/19/19 08:40 MCHC 31.6 g/dl (32.0-35.9) L 09/19/19 08:40 RDW 14.7 % (11.9-15.9) 09/19/19 08:40 Plt Count 268 K/MM3 (134-434) 09/19/19 08:40 MPV 6.3 fl (7.5-11.1) L 09/19/19 08:40 Absolute Neuts (auto) 4.1 K/mm3 (1.5-8.0) 09/19/19 08:40 Neutrophils % 66.0 % (42.8-82.8) D 09/19/19 08:40 Lymphocytes % 25.9 % (8-40) D 09/19/19 08:40 Monocytes % 5.8 % (3.8-10.2) 09/19/19 08:40 Eosinophils % 1.7 % (0-4.5) D 09/19/19 08:40 Basophils % 0.6 % (0-2.0) 09/19/19 08:40 Nucleated RBC % 0 % (0-0) 09/19/19 08:40 PTT (Actin FS) 26.3 SECONDS (25.2-36.5) 09/16/19 10:20 VBG pH 7.397 (7.310-7.410) 09/16/19 10:50 POC VBG pCO2 39.4 mmHg (38-52) 09/16/19 10:50 POC VBG pO2 54.7 mmHg (28-48) H 09/16/19 10:50 VBG HCO3 23.7 mmol/L (23-29) 09/16/19 10:50 VBG O2 Sat (Silver) 88.5 % (70-80) H 09/16/19 10:50 VBG Base Excess -1.0 mmol/L (-2-2) 09/16/19 10:50 Sodium 140 mmol/L (136-145) 09/19/19 08:40 Potassium 3.6 mmol/L (3.5-5.1) 09/19/19 08:40 Chloride 108 mmol/L (98-107) H 09/19/19 08:40 Carbon Dioxide 23 mmol/L (21-32) 09/19/19 08:40 Anion Gap 9 MMOL/L (8-16) 09/19/19 08:40 BUN 10.2 mg/dL (7-18) 09/19/19 08:40 Creatinine 0.8 mg/dL (0.55-1.3) 09/19/19 08:40 Est GFR (CKD-EPI)AfAm 115.74 09/19/19 08:40 Est GFR (CKD-EPI)NonAf 99.86 09/19/19 08:40 POC Glucometer 133 UNITS (80-120) 09/19/19 16:38 Random Glucose 153 mg/dL (74-106) H 09/19/19 08:40 Hemoglobin A1c % 8.0 % (4.2-6.3) H 09/19/19 08:40 Lactic Acid 1.9 mmol/L (0.4-2.0) 09/17/19 06:00 Calcium 7.9 mg/dL (8.5-10.1) L 09/19/19 08:40 Phosphorus 3.0 mg/dL (2.5-4.9) 09/19/19 08:40 Magnesium 2.3 mg/dL (1.8-2.4) 09/19/19 08:40 Iron 22 ug/dL (50-175) L 09/19/19 08:40 TIBC 233 ug/dL (250-450) L 09/19/19 08:40 Iron Saturation 9 % (17.5-39) L 09/19/19 08:40 Unsaturated IBC 211 ug/dL (200-275) 09/19/19 08:40 Ferritin 525.1 ng/ml (8-388) H 09/19/19 08:40 Total Bilirubin 0.2 mg/dL (0.2-1) 09/19/19 08:40 AST 10 U/L (15-37) L 09/19/19 08:40 ALT 11 U/L (13-61) L 09/19/19 08:40 Alkaline Phosphatase 45 U/L (45-117) 09/19/19 08:40 Total Protein 5.8 g/dl (6.4-8.2) L 09/19/19 08:40 Albumin 1.8 g/dl (3.4-5.0) L 09/19/19 08:40 Urine Color Yellow 09/16/19 14:00 Urine Appearance Clear 09/16/19 14:00 Urine pH 5.5 (5.0-8.0) 09/16/19 14:00 Ur Specific [place] 1.023 (1.010-1.035) 09/16/19 14:00 Urine Protein Trace (NEGATIVE) 09/16/19 14:00 Urine Glucose (UA) 1+ (NEGATIVE) H 09/16/19 14:00 Urine Ketones Negative (NEGATIVE) 09/16/19 14:00 Urine Blood Negative (NEGATIVE) 09/16/19 14:00 Urine Nitrite Negative (NEGATIVE) 09/16/19 14:00 Urine Bilirubin Negative (NEGATIVE) 09/16/19 14:00 Urine Urobilinogen 0.2 mg/dL (0.2-1.0) 09/16/19 14:00 Ur Leukocyte Esterase Negative (NEGATIVE) 09/16/19 14:00 COVID-19 ([place]) Not detected (Not Detected) 09/16/19 10:20 Blood Type AB POSITIVE 09/16/19 10:20 Antibody Screen Negative 09/16/19 10:20 Microbiology 09/16/19 10:20 Abscess Gram Stain - Final 09/16/19 10:20 Abscess Wound Culture - Final Strep Agalactiae Group B Streptococcus Bovis 09/16/19 10:50 Blood - Peripheral Venous Blood Culture - Preliminary NO GROWTH OBTAINED AFTER 72 HOURS, INCUBATION TO CONTINUE FOR 2 DAYS. 09/16/19 10:20 Blood - Peripheral Venous Blood Culture - Preliminary NO GROWTH OBTAINED AFTER 72 HOURS, INCUBATION TO CONTINUE FOR 2 DAYS. 09/16/19 14:00 Urine - Urine Clean Catch Urine Culture - Final NO GROWTH OBTAINED Problem List - Problems (1) Left buttock abscess Code(s): L02.31 - CUTANEOUS ABSCESS OF BUTTOCK (2) Alcohol dependence Code(s): F10.20 - ALCOHOL DEPENDENCE, UNCOMPLICATED (3) DM type 2 (diabetes mellitus, type 2) Code(s): E11.9 - TYPE 2 DIABETES MELLITUS WITHOUT COMPLICATIONS (4) Sedative dependence Code(s): F13.20 - SEDATIVE, HYPNOTIC OR ANXIOLYTIC DEPENDENCE, UNCOMPLICATED (5) H/O hidradenitis suppurativa Code(s): Z87.2 - PERSONAL HISTORY OF DISEASES OF THE SKIN, SUBCU (6) Hepatitis C Code(s): B19.20 - UNSPECIFIED VIRAL HEPATITIS C WITHOUT HEPATIC COMA (7) Nicotine dependence Code(s): F17.200 - NICOTINE DEPENDENCE, UNSPECIFIED, UNCOMPLICATED Assessment/Plan Lt buttock abscess s/p I+D Rt upper scotal purulence/small abscess Hx of hydraadenitis DM Hep C + ETOH/sedative/nicotine dependence -- f/u scrotal wound culture isolates, blood cultures neg x 3d -- Strep isolated from buttock abscess -- afebrile, wbc normal -- if no resistant organisms isolated from scrotal wound cultures and pt with continued improvement will switch to po antibiotics. -- continue wound care, surgical follow up
[2019-09-19] MEDS: traZODone HCL 100 MG TABLET (FP) PO SCH ×2 (22:49→23:14)
[2019-09-19] MEDS: ATORVASTATIN CA 40 MG TABLET (FP) PO SCH ×2 (22:53→23:14)
[2019-09-20] MEDS ORDERED: PIPERACILLIN/TAZOBACTAM 3.375 GM VIAL IVPB ONE ×3 (01:33→17:31)
[2019-09-20] MEDS ORDERED: DEXTROSE 5%-WATER - 50 ML IVPB ONE ×3 (01:34→17:31)
[2019-09-20] MEDS: PIPERACILLIN/TAZOB 3.375 GM 3.375 GM in DEXTROSE 5%-WATER - 50 ML IVPB SCH ×3 (01:36→17:36)
[2019-09-20] MEDS: HYDROmorphone HCl 2 MG/ML VIAL IVPB PRN ×4 (03:28→15:37)
[2019-09-20] MEDS: INSULIN SLIDING SCALE (NOVOLOG) 1 VIAL SQ SCH ×4 (06:56→21:07)
[2019-09-20] MEDS: SODIUM CHLORIDE 1,000 ML IV SCH ×3 (08:30→21:43)
[2019-09-20] MEDS: ENOXAPARIN NA (PORCINE) 40 MG/0.4 ML DISP.SYRIN SQ SCH (09:47)
[2019-09-20] MEDS: ASPIRIN COATED 81 MG TABLET.EC PO SCH (09:47)
[2019-09-20] MEDS: amLODIPine BESYLATE 10 MG TABLET (FP) PO SCH (09:48)
[2019-09-20] MEDS: LISINOPRIL 20 MG TABLET (FP) PO SCH (09:48)
[2019-09-20] MEDS: VANCOMYCIN 1 GRAM (PRE-DOCKED) 1,000 MG/250 ML BAG IVPB SCH (13:26)
--- NOTE | 2019-09-20 17:00 | PN ---
Teaching Attending Note Name of Resident: Pablo Hamilton ATTENDING PHYSICIAN STATEMENT I saw and evaluated the patient. I reviewed the resident's note and discussed the case with the resident. I agree with the resident's findings and plan as documented. SUBJECTIVE: Patient is comfortable with no acute distress. OBJECTIVE: Vital Signs Temperature 98.6 F 09/20/19 14:38 Pulse Rate 70 09/20/19 14:38 Respiratory Rate 18 09/20/19 14:38 Blood Pressure 133/52 L 09/20/19 14:38 O2 Sat by Pulse Oximetry (%) 98 09/20/19 09:00 PE: per resident's note CBCD WBC 6.2 K/mm3 (4.0-10.0) 09/19/19 08:40 RBC 2.85 M/mm3 (4.00-5.60) L 09/19/19 08:40 Hgb 7.6 GM/dL (11.7-16.9) L 09/19/19 08:40 Hct 24.1 % (35.4-49) L 09/19/19 08:40 MCV 84.3 fl (80-96) 09/19/19 08:40 MCHC 31.6 g/dl (32.0-35.9) L 09/19/19 08:40 RDW 14.7 % (11.9-15.9) 09/19/19 08:40 Plt Count 268 K/MM3 (134-434) 09/19/19 08:40 MPV 6.3 fl (7.5-11.1) L 09/19/19 08:40 CMP Sodium 140 mmol/L (136-145) 09/19/19 08:40 Potassium 3.6 mmol/L (3.5-5.1) 09/19/19 08:40 Chloride 108 mmol/L (98-107) H 09/19/19 08:40 Carbon Dioxide 23 mmol/L (21-32) 09/19/19 08:40 Anion Gap 9 MMOL/L (8-16) 09/19/19 08:40 BUN 10.2 mg/dL (7-18) 09/19/19 08:40 Creatinine 0.8 mg/dL (0.55-1.3) 09/19/19 08:40 Random Glucose 153 mg/dL (74-106) H 09/19/19 08:40 Calcium 7.9 mg/dL (8.5-10.1) L 09/19/19 08:40 Total Bilirubin 0.2 mg/dL (0.2-1) 09/19/19 08:40 AST 10 U/L (15-37) L 09/19/19 08:40 ALT 11 U/L (13-61) L 09/19/19 08:40 Alkaline Phosphatase 45 U/L (45-117) 09/19/19 08:40 Total Protein 5.8 g/dl (6.4-8.2) L 09/19/19 08:40 Albumin 1.8 g/dl (3.4-5.0) L 09/19/19 08:40 Current Medications Generic Name Dose Route Start Last Admin Trade Name Freq PRN Reason Stop Dose Admin Acetaminophen 650 mg 09/16/19 17:14 09/17/19 23:11 Tylenol - PO 650 mg Q4H PRN Administration FEVER Amlodipine Besylate 10 mg 09/17/19 10:00 09/20/19 09:48 Norvasc - PO 10 mg DAILY [facility] Administration Aspirin 81 mg 09/17/19 10:00 09/20/19 09:47 Ecotrin - PO 81 mg DAILY [facility] Administration Atorvastatin Calcium 40 mg 09/16/19 23:45 09/19/19 22:53 Lipitor - PO Not Given HS [facility] Enoxaparin Sodium 40 mg 09/16/19 17:30 09/20/19 09:47 Lovenox - SQ 40 mg DAILY [facility] Administration Hydromorphone HCl 1 mg 09/17/19 17:36 09/20/19 15:37 Dilaudid Vial - IVPB 1 mg Q4H PRN Administration PAIN LEVEL 8 - 10 Sodium Chloride 1,000 mls @ 100 mls/hr 09/16/19 18:45 09/20/19 08:30 Normal Saline - IV 100 mls/hr [facility] Administration Piperacillin Sod/Tazobactam 50 mls @ 100 mls/hr 09/17/19 13:00 09/20/19 09:48 Sod 3.375 gm/ Dextrose IVPB 100 mls/hr Q8H-IV [facility] Administration Protocol Vancomycin HCl 1,000 mg in 250 mls @ 200 mls/hr 09/17/19 13:29 09/20/19 13:26 Vancomycin (Pre-Docked) IVPB 200 mls/hr Q24H [facility] Administration Protocol Insulin Aspart 1 vial 09/16/19 22:00 09/20/19 16:17 Novolog Vial Sliding Scale - SQ Not Given ACHS [facility] Protocol Lisinopril 20 mg 09/17/19 10:00 09/20/19 09:48 Prinivil PO 20 mg DAILY [facility] Administration Trazodone HCl 700 mg 09/17/19 22:00 09/19/19 22:49 Desyrel - PO Not Given HS [facility] Home Medications Medication Instructions Recorded Glipizide [Glipizide ER] 4 mg PO DAILY 01/19/14 Lisinopril [Prinivil -] 20 mg PO DAILY 01/19/14 Trazodone HCl 700 mg PO HS 01/19/14 Amlodipine Besylate 10 mg PO DAILY 09/16/19 Aspirin 81 mg PO DAILY 09/16/19 Atorvastatin Ca 40 mg PO HS 09/16/19 Invokana 100 mg PO DAILY 09/16/19 Metformin HCl 1,000 mg PO BID 09/16/19 Microbiology 09/18/19 15:20 Scrotum Gram Stain - Final 09/18/19 15:20 Scrotum Wound Culture - Preliminary NO GROWTH OBTAINED AFTER 24 HOURS INCUBATION, REINCUBATED. 09/16/19 10:50 Blood - Peripheral Venous Blood Culture - Preliminary NO GROWTH OBTAINED AFTER 96 HOURS, INCUBATION TO CONTINUE FOR 1 DAYS. 09/16/19 10:20 Blood - Peripheral Venous Blood Culture - Preliminary NO GROWTH OBTAINED AFTER 96 HOURS, INCUBATION TO CONTINUE FOR 1 DAYS. 09/16/19 10:20 Abscess Gram Stain - Final 09/16/19 10:20 Abscess Wound Culture - Final Strep Agalactiae Group B Streptococcus Bovis 09/16/19 14:00 Urine - Urine Clean Catch Urine Culture - Final NO GROWTH OBTAINED CT ABD/PELVIS: 8x7x4 cm LEFT SC BUTTOCK ABSCESS, cutaneous superficial sq soft tissue thickening is noted along the inguinal creases bl as well as along the peritoneum Bilaterally. No abvious fistula is noted mild SPLENOMEGALY moderate atherosclerotic vascular CALCIFICATIONS Right INGUINAL HERNIA CONTAINING FAT EKG: ST@102 BPM CXR: NAPD ASSESSMENT/PLAN: This patient is a 54yom with PMhx of T2DM, PVD,HTN,NLD, diverticulitis , alcohol ,sedative, nicotine dependency,Hep C ab positive, admitted for sepsis with left Buttock abscess from Wound Care for evaluation of multiple abscesses in ED. # Sepsis due to Lt buttock abscess s/p I+D ; on IV antibiotics growing strept agalatiae and strept.bovis, on vanco and zosyn, cx as above, as per iD if michele ent continues to improve will switch to oral antibiotic and possible dc . colonoscopy as an outpatient. #hydraadenetis bilaterally bl inguinal area ( no drainage) : surgical and ID consult for I&D and antibiotic management. IVF continue #Rt upper scotal purulence/small abscess on i v antibiotic continue #T2DM on SS with coverage for now, hold po meds #HTN controlled: on Lisinopril and norvsc continue # tobacco and ETOH dependency: NO RECENT USE #Covid not detected DVT PROPHY - LOVENOX SQ echo ordered for am colonoscopy as an outpatient.
--- NOTE | 2019-09-20 17:52 | PN ---
Physical Exam: SUBJECTIVE: No overnight events. Patient seen and examined. Pt in NAD. ROS negative. OBJECTIVE: Vital Signs Period Temp Pulse Resp BP Sys/Bennett Pulse Ox Last 24 Hr 98.6 F-99.3 F 54-70 18-18 105-133/50-62 96-98 GENERAL: The patient is awake, alert, and fully oriented HEENT: NT, NC, MMM LUNGS: Breath sounds equal, clear to auscultation bilaterally, no wheezes, no crackles, no accessory muscle use. HEART: Regular rate and rhythm, S1, S2 without murmur, rub or gallop. ABDOMEN: Soft, nontender, nondistended, normoactive bowel sounds, no guarding, no rebound EXTREMITIES: Inguinal lymph nodes enlarged b/l; purple skin tag in inguinal crease. Abscess on Left buttock draining bloody material; covered by dressing s/p I&D. Not TTP. NEUROLOGICAL: Normal speech, gait not observed. PSYCH: normal affect. SKIN: Warm, dry, normal turgor, no rashes or lesions noted Laboratory Results - last 24 hr 09/19/19 09/19/19 09/20/19 08:40 21:01 06:54 POC Glucometer 141 127 Transferrin 120 L 09/20/19 11:14 POC Glucometer 171 Transferrin Active Medications Generic Name Dose Route Start Last Admin Trade Name Freq PRN Reason Stop Dose Admin Acetaminophen 650 mg 09/16/19 17:14 09/17/19 23:11 Tylenol - PO 650 mg Q4H PRN Administration FEVER Amlodipine Besylate 10 mg 09/17/19 10:00 09/20/19 09:48 Norvasc - PO 10 mg DAILY [facility] Administration Aspirin 81 mg 09/17/19 10:00 09/20/19 09:47 Ecotrin - PO 81 mg DAILY [facility] Administration Atorvastatin Calcium 40 mg 09/16/19 23:45 09/19/19 22:53 Lipitor - PO Not Given HS [facility] Enoxaparin Sodium 40 mg 09/16/19 17:30 09/20/19 09:47 Lovenox - SQ 40 mg DAILY [facility] Administration Hydromorphone HCl 1 mg 09/17/19 17:36 09/20/19 15:37 Dilaudid Vial - IVPB 1 mg Q4H PRN Administration PAIN LEVEL 8 - 10 Sodium Chloride 1,000 mls @ 100 mls/hr 09/16/19 18:45 09/20/19 08:30 Normal Saline - IV 100 mls/hr [facility] Administration Piperacillin Sod/Tazobactam 50 mls @ 100 mls/hr 09/17/19 13:00 09/20/19 09:48 Sod 3.375 gm/ Dextrose IVPB 100 mls/hr Q8H-IV [facility] Administration Protocol Vancomycin HCl 1,000 mg in 250 mls @ 200 mls/hr 09/17/19 13:29 09/20/19 13:26 Vancomycin (Pre-Docked) IVPB 200 mls/hr Q24H [facility] Administration Protocol Insulin Aspart 1 vial 09/16/19 22:00 09/20/19 16:17 Novolog Vial Sliding Scale - SQ Not Given ACHS [facility] Protocol Lisinopril 20 mg 09/17/19 10:00 09/20/19 09:48 Prinivil PO 20 mg DAILY [facility] Administration Trazodone HCl 700 mg 09/17/19 22:00 09/19/19 22:49 Desyrel - PO Not Given HS [facility] Lactic acid: 2.1 >7.7> 1.9 (09/16) CT abd: 8X7X4 cm L buttock subcutaneous abscess. Cutaneous & superficial Subcutaneous soft tissue thickening along inguinal creases b/l as well as along peritoneum b/l. CXR: no acute pathlogy COVID ne ative Hgb A1C: 8.0 abscess cx: strep agalactiae Group B, streptococcus Bovis Scrotal Wound cx: No growth ASSESSMENT/PLAN: 54 YO M PMH PVD, DM, HLD, HTN, diverticulitis, EtOH/sedative/nicotine dependence, substance induced sleep disorder, & Hep C ab positive who presents with inguinal abscesses & hernias, and an abscess on L buttock with drainage. Suspicion for hidradenitis. Admitted for sepsis 2/2 to cellulitis. #Sepsis 2/2 to Cellulitis Abscess on Left buttock, R upper scrotal abscess -s/p I&D (09/16) -lactic acidosis & leukocytosis improved. Will monitor WBC -Scrotal Wound cx: No growth -c/w IV vanc & Piperacillin / Tazobactam; awaiting ID recommendations -refused HIV testing #hidradenitis in inguinal area -f/u with ID/sgy consult for antibiotic/I&D #DM ISS Hgb A1C: 8.0 #HTN: c/w amlodipine 10 mg PO #HLD: c/w atorvastatin 40 mg PO #PVD: c/w aspirin 81 mg #FEN -Lactate Ringer's -monitor lytes -Diabetic diet #DVT ppx -Lovenox 40 mg SQ #DISPO maintain on med surg -Outpt colonoscopy because streptococcus Bovis on cx Visit type - Emergency Visit Emergency Visit: Yes ED Registration Date: 09/16/19 Care time: The patient presented to the Emergency Department on the above date and was hospitalized for further evaluation of their emergent condition. - New Patient This patient is new to me today: No - Critical Care Critical Care patient: No ATTENDING PHYSICIAN STATEMENT I saw and evaluated the patient. I reviewed the resident's note and discussed the case with the resident. I agree with the resident's findings and plan as documented. SUBJECTIVE: OBJECTIVE: ASSESSMENT AND PLAN:
--- NOTE | 2019-09-20 18:26 | PN ---
Progress Note, Physician History of Present Illness: Pt without complaints. Denies pain. Dressings being done. - Current Medication List Current Medications: Active Medications Acetaminophen (Tylenol -) 650 mg PO Q4H PRN PRN Reason: FEVER Last Admin: 09/17/19 23:11 Dose: 650 mg Documented by: Amlodipine Besylate (Norvasc -) 10 mg PO DAILY [facility] Last Admin: 09/20/19 09:48 Dose: 10 mg Documented by: Aspirin (Ecotrin -) 81 mg PO DAILY [facility] Last Admin: 09/20/19 09:47 Dose: 81 mg Documented by: Atorvastatin Calcium (Lipitor -) 40 mg PO HS [facility] Last Admin: 09/19/19 22:53 Dose: Not Given Documented by: Enoxaparin Sodium (Lovenox -) 40 mg SQ DAILY [facility] Last Admin: 09/20/19 09:47 Dose: 40 mg Documented by: Sodium Chloride (Normal Saline -) 1,000 mls @ 100 mls/hr IV ASD[facility] Last Admin: 09/20/19 08:30 Dose: 100 mls/hr Documented by: Piperacillin Sod/Tazobactam (Sod 3.375 gm/ Dextrose) 50 mls @ 100 mls/hr IVPB Q8H-IV [facility]; Protocol Last Admin: 09/20/19 17:36 Dose: 100 mls/hr Documented by: Vancomycin HCl (Vancomycin (Pre-Docked)) 1,000 mg in 250 mls @ 200 mls/hr IVPB Q24H [facility]; Protocol Last Admin: 09/20/19 13:26 Dose: 200 mls/hr Documented by: Insulin Aspart (Novolog Vial Sliding Scale -) 1 vial SQ ACHS [facility]; Protocol Last Admin: 09/20/19 16:17 Dose: Not Given Documented by: Lisinopril (Prinivil) 20 mg PO DAILY [facility] Last Admin: 09/20/19 09:48 Dose: 20 mg Documented by: Trazodone HCl (Desyrel -) 700 mg PO [facility] Last Admin: 09/19/19 22:49 Dose: Not Given Documented by: - Objective Vital Signs: Vital Signs Temperature 98.6 F 09/20/19 14:38 Pulse Rate 70 09/20/19 14:38 Respiratory Rate 18 09/20/19 14:38 Blood Pressure 133/52 L 09/20/19 14:38 O2 Sat by Pulse Oximetry (%) 98 09/20/19 09:00 Constitutional: Yes: No Distress, Calm Cardiovascular: Yes: Regular Rate and Rhythm Respiratory: Yes: Regular Gastrointestinal: Yes: Normal Bowel Sounds, Soft Genitourinary: Yes: Other (scrotal small collections, dry, no tenderness noted) Wound/Incision: Yes: Dressing Dry and Intact Neurological: Yes: Alert, Oriented Labs: CBC, BMP 09/19/19 08:40 09/19/19 08:40 Microbiology 09/18/19 15:20 Scrotum Gram Stain - Final 09/18/19 15:20 Scrotum Wound Culture - Preliminary NO GROWTH OBTAINED AFTER 24 HOURS INCUBATION, REINCUBATED. 09/16/19 10:50 Blood - Peripheral Venous Blood Culture - Preliminary NO GROWTH OBTAINED AFTER 96 HOURS, INCUBATION TO CONTINUE FOR 1 DAYS. 09/16/19 10:20 Blood - Peripheral Venous Blood Culture - Preliminary NO GROWTH OBTAINED AFTER 96 HOURS, INCUBATION TO CONTINUE FOR 1 DAYS. 09/16/19 10:20 Abscess Gram Stain - Final 09/16/19 10:20 Abscess Wound Culture - Final Strep Agalactiae Group B Streptococcus Bovis 09/16/19 14:00 Urine - Urine Clean Catch Urine Culture - Final NO GROWTH OBTAINED Problem List - Problems (1) Left buttock abscess Code(s): L02.31 - CUTANEOUS ABSCESS OF BUTTOCK (2) Alcohol dependence Code(s): F10.20 - ALCOHOL DEPENDENCE, UNCOMPLICATED (3) DM type 2 (diabetes mellitus, type 2) Code(s): E11.9 - TYPE 2 DIABETES MELLITUS WITHOUT COMPLICATIONS (4) Sedative dependence Code(s): F13.20 - SEDATIVE, HYPNOTIC OR ANXIOLYTIC DEPENDENCE, UNCOMPLICATED (5) H/O hidradenitis suppurativa Code(s): Z87.2 - PERSONAL HISTORY OF DISEASES OF THE SKIN, SUBCU (6) Hepatitis C Code(s): B19.20 - UNSPECIFIED VIRAL HEPATITIS C WITHOUT HEPATIC COMA (7) Nicotine dependence Code(s): F17.200 - NICOTINE DEPENDENCE, UNSPECIFIED, UNCOMPLICATED Assessment/Plan Lt buttock abscess s/p I+D Rt upper scotal purulence/small abscess Hx of hydraadenitis DM Hep C + ETOH/sedative/nicotine dependence -- scrotal wound culture - no growth -- Strep isolated from buttock abscess -- afebrile, wbc normal -- possible switch to Augmentin tomorrow -- continue wound care, surgical follow up
[2019-09-20] MEDS ORDERED: PT OWN MED DRAWER 7, Y5N ONE (20:24)
[2019-09-20] MEDS ORDERED: traMADol HCL 50 MG TABLET PO ONE (20:52)
[2019-09-20] MEDS: traZODone HCL 100 MG TABLET (FP) PO SCH ×2 (21:07→21:28)
[2019-09-20] MEDS: ATORVASTATIN CA 40 MG TABLET (FP) PO SCH (21:07)
[2019-09-20] MEDS ORDERED: MORPHINE SULFATE 2 MG/ML VIAL IVPUSH ONE (21:16)
[2019-09-21] MEDS: AMPICILLIN NA/SULBACTAM NA 3 GM in SODIUM CHLORIDE 100 ML IVPB SCH ×2 (01:03→10:15)
[2019-09-21] MEDS: INSULIN SLIDING SCALE (NOVOLOG) 1 VIAL SQ SCH ×4 (06:27→21:33)
--- NOTE | 2019-09-21 09:39 | PN ---
Teaching Attending Note Name of Resident: Pablo Hamilton ATTENDING PHYSICIAN STATEMENT I saw and evaluated the patient. I reviewed the resident's note and discussed the case with the resident. I agree with the resident's findings and plan as documented. SUBJECTIVE: Patient is comfortable with no acute distress. OBJECTIVE: Vital Signs Temperature 99.1 F 09/21/19 06:43 Pulse Rate 79 09/21/19 06:43 Respiratory Rate 18 09/21/19 06:43 Blood Pressure 131/67 09/21/19 06:43 O2 Sat by Pulse Oximetry (%) 98 09/20/19 21:00 PE:per resident's note s/p I & D of the buttock CBCD WBC 6.2 K/mm3 (4.0-10.0) 09/19/19 08:40 RBC 2.85 M/mm3 (4.00-5.60) L 09/19/19 08:40 Hgb 7.6 GM/dL (11.7-16.9) L 09/19/19 08:40 Hct 24.1 % (35.4-49) L 09/19/19 08:40 MCV 84.3 fl (80-96) 09/19/19 08:40 MCHC 31.6 g/dl (32.0-35.9) L 09/19/19 08:40 RDW 14.7 % (11.9-15.9) 09/19/19 08:40 Plt Count 268 K/MM3 (134-434) 09/19/19 08:40 MPV 6.3 fl (7.5-11.1) L 09/19/19 08:40 CMP Sodium 140 mmol/L (136-145) 09/19/19 08:40 Potassium 3.6 mmol/L (3.5-5.1) 09/19/19 08:40 Chloride 108 mmol/L (98-107) H 09/19/19 08:40 Carbon Dioxide 23 mmol/L (21-32) 09/19/19 08:40 Anion Gap 9 MMOL/L (8-16) 09/19/19 08:40 BUN 10.2 mg/dL (7-18) 09/19/19 08:40 Creatinine 0.8 mg/dL (0.55-1.3) 09/19/19 08:40 Random Glucose 153 mg/dL (74-106) H 09/19/19 08:40 Calcium 7.9 mg/dL (8.5-10.1) L 09/19/19 08:40 Total Bilirubin 0.2 mg/dL (0.2-1) 09/19/19 08:40 AST 10 U/L (15-37) L 09/19/19 08:40 ALT 11 U/L (13-61) L 09/19/19 08:40 Alkaline Phosphatase 45 U/L (45-117) 09/19/19 08:40 Total Protein 5.8 g/dl (6.4-8.2) L 09/19/19 08:40 Albumin 1.8 g/dl (3.4-5.0) L 09/19/19 08:40 Current Medications Generic Name Dose Route Start Last Admin Trade Name Freq PRN Reason Stop Dose Admin Acetaminophen 650 mg 09/16/19 17:14 09/17/19 23:11 Tylenol - PO 650 mg Q4H PRN Administration FEVER Amlodipine Besylate 10 mg 09/17/19 10:00 09/20/19 09:48 Norvasc - PO 10 mg DAILY ADRIA Administration Aspirin 81 mg 09/17/19 10:00 09/20/19 09:47 Ecotrin - PO 81 mg DAILY [facility] Administration Atorvastatin Calcium 40 mg 09/16/19 23:45 09/20/19 21:07 Lipitor - PO 40 mg HS ADRIA Administration Enoxaparin Sodium 40 mg 09/16/19 17:30 09/20/19 09:47 Lovenox - SQ 40 mg DAILY [facility] Administration Sodium Chloride 1,000 mls @ 100 mls/hr 09/16/19 18:45 09/20/19 21:43 Normal Saline - IV 100 mls/hr ASDIR [facility] Administration Ampicillin Sodium/Sulbactam 100 mls @ 200 mls/hr 09/21/19 02:00 09/21/19 01:03 Sodium 3 gm/ Sodium Chloride IVPB 200 mls/hr Q8H-IV [facility] Administration Insulin Aspart 1 vial 09/16/19 22:00 09/21/19 06:27 Novolog Vial Sliding Scale - SQ 2 units ACHS AD[facility]A Administration Protocol Lisinopril 20 mg 09/17/19 10:00 09/20/19 09:48 Prinivil PO 20 mg DAILY [facility] Administration Trazodone HCl 700 mg 09/17/19 22:00 09/20/19 21:28 Desyrel - PO 700 mg HS [facility]A Administration Home Medications Medication Instructions Recorded Glipizide [Glipizide ER] 4 mg PO DAILY 01/19/14 Lisinopril [Prinivil -] 20 mg PO DAILY 01/19/14 Trazodone HCl 700 mg PO HS 01/19/14 Amlodipine Besylate 10 mg PO DAILY 09/16/19 Aspirin 81 mg PO DAILY 09/16/19 Atorvastatin Ca 40 mg PO HS 09/16/19 Invokana 100 mg PO DAILY 09/16/19 Metformin HCl 1,000 mg PO BID 09/16/19 CT ABD/PELVIS: 8x7x4 cm LEFT SC BUTTOCK ABSCESS, cutaneous superficial sq soft tissue thickening is noted along the inguinal creases bl as well as along the peritoneum Bilaterally. No abvious fistula is noted mild SPLENOMEGALY moderate atherosclerotic vascular CALCIFICATIONS Right INGUINAL HERNIA CONTAINING FAT EKG: ST@102 BPM CXR: NAPD ASSESSMENT AND PLAN: This patient is a 54yom with PMhx of T2DM, PVD,HTN,NLD, diverticulitis , alcohol ,sedative, nicotine dependency,Hep C ab positive, admitted for sepsis with left Buttock abscess from Wound Care for evaluation of multiple abscesses in ED. # Sepsis due to Lt buttock abscess s/p I+D ; s/p on IV antibiotics growing strept agalatiae and strept.bovis, on vanco and zosyn, cx as above, as per iD to switch to oral antibiotic to augmentin 875mg po bid x 5 more days. colonscopy as an outpatient. #hydraadenetis bilaterally bl inguinal area ( no drainage) : surgical and ID consult for I&D and antibiotic management. #Rt upper scotal purulence/small abscess sw/p iv antibiotic continue with oral augmenti as per id #T2DM continue home meds #HTN controlled: on Lisinopril and norvsc continue # tobacco and ETOH dependency: NO RECENT USE #Covid not detected DVT PROPHY - LOVENOX SQ echo ordered but patient refused as per echo department [facility] [place], the surgeon dr tripathi, urologist, ID dr dos santos
[2019-09-21] MEDS: amLODIPine BESYLATE 10 MG TABLET (FP) PO SCH (10:15)
[2019-09-21] MEDS: LISINOPRIL 20 MG TABLET (FP) PO SCH (10:15)
[2019-09-21] MEDS: ASPIRIN COATED 81 MG TABLET.EC PO SCH (10:15)
[2019-09-21] MEDS: ENOXAPARIN NA (PORCINE) 40 MG/0.4 ML DISP.SYRIN SQ SCH (10:50)
--- NOTE | 2019-09-21 11:31 | PN ---
Progress Note, Physician History of Present Illness: stable no new issues - Current Medication List Current Medications: Active Medications Acetaminophen (Tylenol -) 650 mg PO Q4H PRN PRN Reason: FEVER Last Admin: 09/17/19 23:11 Dose: 650 mg Documented by: Amlodipine Besylate (Norvasc -) 10 mg PO DAILY [facility] Last Admin: 09/21/19 10:15 Dose: 10 mg Documented by: Aspirin (Ecotrin -) 81 mg PO DAILY [facility] Last Admin: 09/21/19 10:15 Dose: 81 mg Documented by: Atorvastatin Calcium (Lipitor -) 40 mg PO [facility] Last Admin: 09/20/19 21:07 Dose: 40 mg Documented by: Enoxaparin Sodium (Lovenox -) 40 mg SQ DAILY [facility] Last Admin: 09/21/19 10:50 Dose: Not Given Documented by: Sodium Chloride (Normal Saline -) 1,000 mls @ 100 mls/hr IV ASDIR [facility] Last Admin: 09/20/19 21:43 Dose: 100 mls/hr Documented by: Ampicillin Sodium/Sulbactam (Sodium 3 gm/ Sodium Chloride) 100 mls @ 200 mls/hr IVPB Q8H-IV [facility] Last Admin: 09/21/19 10:15 Dose: 200 mls/hr Documented by: Insulin Aspart (Novolog Vial Sliding Scale -) 1 vial SQ [facility]; Protocol Last Admin: 09/21/19 06:27 Dose: 2 units Documented by: Lisinopril (Prinivil) 20 mg PO DAILY [facility] Last Admin: 09/21/19 10:15 Dose: 20 mg Documented by: Trazodone HCl (Desyrel -) 700 mg PO [facility] Last Admin: 09/20/19 21:28 Dose: 700 mg Documented by: - Objective Vital Signs: Vital Signs Temperature 98.6 F 09/21/19 10:00 Pulse Rate 77 09/21/19 10:00 Respiratory Rate 20 09/21/19 10:00 Blood Pressure 142/69 09/21/19 10:00 O2 Sat by Pulse Oximetry (%) 98 09/20/19 21:00 Constitutional: Yes: No Distress, Calm Cardiovascular: Yes: S1, S2 Respiratory: Yes: Regular, CTA Bilaterally Gastrointestinal: Yes: Normal Bowel Sounds, Soft Musculoskeletal: Yes: WNL Extremities: Yes: WNL Wound/Incision: Yes: Dressing Dry and Intact Neurological: Yes: Alert, Oriented Psychiatric: Yes: Alert, Oriented Labs: CBC, BMP 09/19/19 08:40 09/19/19 08:40 Assessment/Plan kristy List - Problems (1) Left buttock abscess Code(s): L02.31 - CUTANEOUS ABSCESS OF BUTTOCK (2) Alcohol dependence Code(s): F10.20 - ALCOHOL DEPENDENCE, UNCOMPLICATED (3) DM type 2 (diabetes mellitus, type 2) Code(s): E11.9 - TYPE 2 DIABETES MELLITUS WITHOUT COMPLICATIONS (4) Sedative dependence Code(s): F13.20 - SEDATIVE, HYPNOTIC OR ANXIOLYTIC DEPENDENCE, UNCOMPLICATED (5) H/O hidradenitis suppurativa Code(s): Z87.2 - PERSONAL HISTORY OF DISEASES OF THE SKIN, SUBCU (6) Hepatitis C Code(s): B19.20 - UNSPECIFIED VIRAL HEPATITIS C WITHOUT HEPATIC COMA (7) Nicotine dependence Code(s): F17.200 - NICOTINE DEPENDENCE, UNSPECIFIED, UNCOMPLICATED Assessment/Plan Lt buttock abscess s/p I+D Rt upper scotal purulence/small abscess Hx of hydraadenitis DM Hep C + ETOH/sedative/nicotine dependence -- scrotal wound culture - no growth -- Strep isolated from buttock abscess -- afebrile, wbc normal can switch to oral augmentin 875 mg po bid for 5 more days
[2019-09-21] MEDS ORDERED: INSULIN (NOVOLOG) ASPART 100 UNITS/ML 10ML VIAL ONE (17:08)
[2019-09-21] MEDS: AMOX TR/POT CLAV 875MG/125MG TABLETS (FP) PO SCH (17:38)
[2019-09-21] MEDS: SODIUM CHLORIDE 1,000 ML IV SCH (18:34)
[2019-09-21] MEDS ORDERED: PT OWN MED DRAWER 7, Y5N ONE (21:23)
[2019-09-21] MEDS: ATORVASTATIN CA 40 MG TABLET (FP) PO SCH (21:33)
[2019-09-22] MEDS: INSULIN SLIDING SCALE (NOVOLOG) 1 VIAL SQ SCH ×4 (06:02→18:49)
[2019-09-22] MEDS: AMOX TR/POT CLAV 875MG/125MG TABLETS (FP) PO SCH (08:06)
[2019-09-22] MEDS: ASPIRIN COATED 81 MG TABLET.EC PO SCH (09:22)
[2019-09-22] MEDS: ENOXAPARIN NA (PORCINE) 40 MG/0.4 ML DISP.SYRIN SQ SCH (09:22)
[2019-09-22] MEDS: LISINOPRIL 20 MG TABLET (FP) PO SCH (09:22)
[2019-09-22] MEDS: amLODIPine BESYLATE 10 MG TABLET (FP) PO SCH (09:22)
[2019-09-22] MEDS ORDERED: INSULIN (NOVOLOG) ASPART 100 UNITS/ML 10ML VIAL ONE (11:35)
--- NOTE | 2019-09-22 12:25 | PN ---
Progress Note, Physician History of Present Illness: patient c/o of pain all over has developed an abscess on the thigh now also tenderness in the rt ing area drained wound looks good - Current Medication List Current Medications: Active Medications Acetaminophen (Tylenol -) 650 mg PO Q4H PRN PRN Reason: FEVER Last Admin: 09/17/19 23:11 Dose: 650 mg Documented by: Amlodipine Besylate (Norvasc -) 10 mg PO DAILY [facility] Last Admin: 09/22/19 09:22 Dose: 10 mg Documented by: Amoxicillin/Clavulanate Potassium (Augmentin - 875mg Tablet) 1 tab PO BID@0800,1730 [facility] Last Admin: 09/22/19 08:06 Dose: 1 tab Documented by: Aspirin (Ecotrin -) 81 mg PO DAILY [facility] Last Admin: 09/22/19 09:22 Dose: 81 mg Documented by: Atorvastatin Calcium (Lipitor -) 40 mg PO HS [facility] Last Admin: 09/21/19 21:33 Dose: Not Given Documented by: Enoxaparin Sodium (Lovenox -) 40 mg SQ DAILY [facility] Last Admin: 09/22/19 09:22 Dose: Not Given Documented by: Sodium Chloride (Normal Saline -) 1,000 mls @ 100 mls/hr IV ASDIR [facility] Last Admin: 09/21/19 18:34 Dose: Not Given Documented by: Insulin Aspart (Novolog Vial Sliding Scale -) 1 vial SQ [facility]; Protocol Last Admin: 09/22/19 11:37 Dose: 4 units Documented by: Lisinopril (Prinivil) 20 mg PO DAILY [facility] Last Admin: 09/22/19 09:22 Dose: 20 mg Documented by: - Objective Vital Signs: Vital Signs Temperature 99.4 F 09/22/19 10:00 Pulse Rate 68 09/22/19 10:00 Respiratory Rate 20 09/22/19 10:00 Blood Pressure 125/54 L 09/22/19 10:00 O2 Sat by Pulse Oximetry (%) 98 09/22/19 09:00 Constitutional: Yes: Calm, Mild Distress Cardiovascular: Yes: S1, S2 Respiratory: Yes: Regular, CTA Bilaterally Gastrointestinal: Yes: Normal Bowel Sounds, Soft Musculoskeletal: Yes: WNL Extremities: Yes: Other Integumentary: Yes: Other (abscess present on the thigh,tenderness in the rt ing region) Wound/Incision: Yes: Dressing Dry and Intact, Other Neurological: Yes: Alert, Oriented Psychiatric: Yes: Alert, Oriented Labs: CBC, BMP 09/19/19 08:40 09/19/19 08:40 Assessment/Plan kristy List - Problems (1) Left buttock abscess Code(s): L02.31 - CUTANEOUS ABSCESS OF BUTTOCK (2) Alcohol dependence Code(s): F10.20 - ALCOHOL DEPENDENCE, UNCOMPLICATED (3) DM type 2 (diabetes mellitus, type 2) Code(s): E11.9 - TYPE 2 DIABETES MELLITUS WITHOUT COMPLICATIONS (4) Sedative dependence Code(s): F13.20 - SEDATIVE, HYPNOTIC OR ANXIOLYTIC DEPENDENCE, UNCOMPLICATED (5) H/O hidradenitis suppurativa Code(s): Z87.2 - PERSONAL HISTORY OF DISEASES OF THE SKIN, SUBCU (6) Hepatitis C Code(s): B19.20 - UNSPECIFIED VIRAL HEPATITIS C WITHOUT HEPATIC COMA (7) Nicotine dependence Code(s): F17.200 - NICOTINE DEPENDENCE, UNSPECIFIED, UNCOMPLICATED Assessment/Plan Lt buttock abscess s/p I+D Rt upper scotal purulence/small abscess Hx of hydraadenitis DM Hep C + ETOH/sedative/nicotine dependence needs drainage of the abscess also tenderness over the ing region needs work up wound care rest as per the team
--- NOTE | 2019-09-22 16:01 | PN ---
Teaching Attending Note Name of Resident: Karl Ortez ATTENDING PHYSICIAN STATEMENT I saw and evaluated the patient. I reviewed the resident's note and discussed the case with the resident. I agree with the resident's findings and plan as documented. SUBJECTIVE: No fever or chills,. no pain. limited ROs as he is being changed and also , limited cooperation. refused IV abx last ight so he was switched to Augmentin . refused IV line OBJECTIVE: NAD, limited cooperation Skin: inner buttock area with induration and and sinus tracts. no discharge . L upper posterior thigh with an indurated, and fluctuant area ( 2 -3 cm in diameter ). groins with scarring, induration, and tenderness. dry blood in R groin. inguinal hernia in R groin. axillary areas with scarring, and thickened skin, but no drainage. L buttock with a star shaped wound with clean base and no surrounding erythema ( site of a drained abscess ) ASSESSMENT AND PLAN: 54 y/o man with h/o DM, HTN, PVD, Hlp, diverticulitis , and ETOH abuse, who presented with buttock area paina nd was found to have abscesses 1- buttock abscesses, inguinal hydradenitis suppurativa. - has fever, barneyley due the abscess in L upper thigh that neds to be drained. - d/w Id , will place back on IV Abx - if fever again will send blood cx - d/w Robb, form surgical team to evaluate upper thigh collection and R inguinal area /hernia - patient refused HIV testing previously 2- DM : A1c of 8 . - resume home glemiperide and dc HS coverage of SSI 3- Normocytic anemia: barneyley ACD. ferritin elevated but it is acute phase reactant. TIBC low. Iron studies need to be repeated as out tp 4- HTN: Norvasc and lisinopril 5- DVT px: lovenox
[2019-09-22] MEDS ORDERED: PT OWN MED DRAWER 7, Y5N ONE (17:41)
[2019-09-22] MEDS: AMPICILLIN NA/SULBACTAM NA 3 GM in SODIUM CHLORIDE 100 ML IVPB SCH (18:00)
[2019-09-22] MEDS: SODIUM CHLORIDE 1,000 ML IV SCH (18:03)
--- NOTE | 2019-09-22 20:12 | PN ---
Physical Exam: SUBJECTIVE: Overnight pt had fever 100.3 F. Patient seen and examined. Pt complained of pain in intergluteal region. OBJECTIVE: Vital Signs Period Temp Pulse Resp BP Sys/Bennett Pulse Ox Last 24 Hr 99.4 F-101.0 F 61-84 20-20 103-137/53-62 98-98 GENERAL: The patient is awake, alert, and fully oriented HEENT: NT, NC, MMM LUNGS: Breath sounds equal, clear to auscultation bilaterally, no wheezes, no crackles, no accessory muscle use. HEART: Regular rate and rhythm, S1, S2 without murmur, rub or gallop. ABDOMEN: Soft, nontender, nondistended, normoactive bowel sounds, no guarding, no rebound EXTREMITIES: Inguinal lymph nodes enlarged b/l; purple skin tag in inguinal crease. R inguinal hernia. Abscess on Left buttock w/ minimal drainage; covered by dressing s/p I&D. Not TTP. Fluctant region on Left upper posterior thigh near scrotum; TTP. Inner portion of Intergluteal fold demonstrated sinus tracts and induration NEUROLOGICAL: Normal speech, gait not observed. PSYCH: normal affect. SKIN: Warm, dry, normal turgor, no rashes or lesions noted Laboratory Results - last 24 hr 09/21/19 09/22/19 09/22/19 21:32 05:31 11:16 POC Glucometer 155 139 208 09/22/19 16:12 POC Glucometer 179 Active Medications Generic Name Dose Route Start Last Admin Trade Name Freq PRN Reason Stop Dose Admin Acetaminophen 650 mg 09/16/19 17:14 09/17/19 23:11 Tylenol - PO 650 mg Q4H PRN Administration FEVER Amlodipine Besylate 10 mg 09/17/19 10:00 09/22/19 09:22 Norvasc - PO 10 mg DAILY [facility] Administration Aspirin 81 mg 09/17/19 10:00 09/22/19 09:22 Ecotrin - PO 81 mg DAILY [facility] Administration Atorvastatin Calcium 40 mg 09/16/19 23:45 09/21/19 21:33 Lipitor - PO Not Given HS [facility] Enoxaparin Sodium 40 mg 09/16/19 17:30 09/22/19 09:22 Lovenox - SQ Not Given DAILY [facility] Glimepiride 4 mg 07/08/20 07:00 Amaryl - PO ACBK [facility] Sodium Chloride 1,000 mls @ 100 mls/hr 09/16/19 18:45 09/22/19 18:03 Normal Saline - IV 100 mls/hr ASDIR [facility] Administration Ampicillin Sodium/Sulbactam 100 mls @ 200 mls/hr 09/22/19 18:00 09/22/19 18:00 Sodium 3 gm/ Sodium Chloride IVPB 200 mls/hr Q8H-IV [facility] Administration Insulin Aspart 1 vial 09/22/19 18:45 09/22/19 18:49 Novolog Vial Sliding Scale - SQ Not Given TIDAC [facility] Protocol Lisinopril 20 mg 09/17/19 10:00 09/22/19 09:22 Prinivil PO 20 mg DAILY [facility] Administration abscess cx: strep agalactiae Group B, streptococcus Bovis ASSESSMENT/PLAN: 54 YO M PMH PVD, DM, HLD, HTN, diverticulitis, EtOH/sedative/nicotine dependence, substance induced sleep disorder, & Hep C ab positive who presents with inguinal abscesses & hernias, and an abscess on L buttock with drainage. Admitted for sepsis 2/2 to cellulitis. #Sepsis 2/2 to Cellulitis Abscess on Left buttock, abscess on Upper L thigh, hidradenitis suppurativa in inguinal area -s/p I&D for L buttock (09/16). -refused HIV testing -lactic acidosis & leukocytosis improved. Will monitor WBC -Pt had fever overnight and developed painful abscess on L posterior thigh. So, PO Augmentin was stopped, and IV Ampicllin/sulbacam was restarted. -sgy consulted for evaluation of posterior thigh abscess for drainage and assessment of inguinal area. spoke with surgical PA -fever in the PM. blood cx sent. CXR ordered to R/o any acute pathology. #DM -ISS -Hgb A1C: 8.0 -ISS HS cancelled. Changed to TID AC -restart home med glimepiride 4 mg PO #Anemia -H&H decreased. Iron low. ferritin elevated, TIBC/transferrin low. MCV normal. Likely anemia of chronic disease -f/u iron studies outpatient #HTN: c/w home meds amlodipine 10 mg PO, lisinopril 20 mg PO #HLD: c/w home meds atorvastatin 40 mg PO #PVD: c/w home meds aspirin 81 mg #FEN -no IV fluids -monitor lytes -Diabetic diet #DVT ppx -Lovenox 40 mg SQ #DISPO maintain on med surg -Outpt colonoscopy because streptococcus Bovis on cx Visit type - Emergency Visit Emergency Visit: Yes ED Registration Date: 09/16/19 Care time: The patient presented to the Emergency Department on the above date and was hospitalized for further evaluation of their emergent condition. - New Patient This patient is new to me today: No - Critical Care Critical Care patient: No ATTENDING PHYSICIAN STATEMENT I saw and evaluated the patient. I reviewed the resident's note and discussed the case with the resident. I agree with the resident's findings and plan as documented. SUBJECTIVE: OBJECTIVE: ASSESSMENT AND PLAN:
[2019-09-22] MEDS: ATORVASTATIN CA 40 MG TABLET (FP) PO SCH (22:23)
[2019-09-23] MEDS ORDERED: PT OWN MED DRAWER 7, Y5N ONE (02:22)
[2019-09-23] MEDS: AMPICILLIN NA/SULBACTAM NA 3 GM in SODIUM CHLORIDE 100 ML IVPB SCH ×3 (02:29→17:46)
[2019-09-23] MEDS: GLIMEPIRIDE 4 MG TABLET PO SCH (06:28)
[2019-09-23] MEDS: ACETAMINOPHEN 325 MG TABLET (FP) PO PRN (06:31)
[2019-09-23] MEDS: INSULIN SLIDING SCALE (NOVOLOG) 1 VIAL SQ SCH ×3 (06:36→16:56)
[2019-09-23 09:23] LABS: BASO % 0.3 % (0-2.0); EOS % 2.6 % (0-4.5); HEMATOCRIT 28.6 % (35.4-49); HEMOGLOBIN 9.1 GM/dL (11.7-16.9); LYMPH % 15.6 % (8-40); MCH 26.5 pg (25.7-33.7); MCHC 31.7 g/dl (32.0-35.9); MEAN CELL VOLUME 83.6 fl (80-96); MEAN PLT VOLUME 6.3 fl (7.5-11.1); MONO % 5.5 % (3.8-10.2); PLATELET COUNT 394 K/MM3 (134-434); RBC 3.42 M/mm3 (4.00-5.60); RDW 15.4 % (11.9-15.9); WHITE BLOOD COUNT 10.2 K/mm3 (4.0-10.0)
[2019-09-23] MEDS: ASPIRIN COATED 81 MG TABLET.EC PO SCH (09:43)
[2019-09-23] MEDS: LISINOPRIL 20 MG TABLET (FP) PO SCH (09:43)
[2019-09-23] MEDS: amLODIPine BESYLATE 10 MG TABLET (FP) PO SCH (09:43)
[2019-09-23] MEDS: ENOXAPARIN NA (PORCINE) 40 MG/0.4 ML DISP.SYRIN SQ SCH (09:43)
[2019-09-23 09:56] LABS: POTASSIUM 3.3 mmol/L (3.5-5.1)
[2019-09-23 10:02] LABS: ALBUMIN 2.1 g/dl (3.4-5.0); BILIRUBIN,TOTAL 0.4 mg/dL (0.2-1); MAGNESIUM 2.3 mg/dL (1.8-2.4); PHOSPHOROUS 2.3 mg/dL (2.5-4.9); TOT PROT 6.9 g/dl (6.4-8.2)
--- NOTE | 2019-09-23 11:58 | ECHO ---
Version: 1 Name: JOHANNY ETIENNE Exam: Adult Echocardiogram Study Date: 09/23/2019, 10:35 AM Age: 54 Years MMode/2D Measurements & Calculations IVSd: 0.96 cm LVIDs: 3.5 cm LVIDd: 5.1 cm LVPWd: 0.91 cm ACS: 1.77 cm Ao root diam: 2.6 cm LVOT diam: 1.95 cm LA dimension: 4.1 cm Doppler Measurements & Calculations MV E max robert: 112.4 cm/sec Med E/e': 14.6 MV A max robert: 86.6 cm/sec Med Peak E' Robert: 7.7 cm/sec MV E/A: 1.30 Lat E/e': 8.4 Lat Peak E' Robert: 13.5 cm/sec MR max P.9 mmHg Ao max P.7 mmHg RAYRAY(I,D): 2.25 cm Ao mean P.7 mmHg LV V1 mean: 95.4 cm/sec Ao V2 max: 178.1 cm/sec LV V1 mean P.2 mmHg TR max robert: 206.3 cm/sec TR max P.0 mmHg Left Ventricle The left ventricular size, thickness and function are normal. Ejection Fraction = 70%. Left Ventricu lar Filling pattern is normal for age. Right Ventricle The right ventricle is normal in size and function. Atria The left atrium is mildly dilated. Right atrial size is normal. Mitral Valve The mitral valve is grossly normal. There is mild mitral regurgitation. Tricuspid Valve The tricuspid valve is not well visualized, but is grossly normal. There is mild tricuspid regurgita tion. Aortic Valve The aortic valve opens well. Mild aortic regurgitation. Pulmonic Valve The pulmonic valve is not well visualized. Great Vessels The aortic root is normal size. Normal aortic arch, descending and ascending aorta. Pericardium/Pleura There is no pericardial effusion. Summary Statements The left ventricular size, thickness and function are normal Ejection Fraction = 70%. Left Ventricular Filling pattern is normal for age. The right ventricle is normal in size and function. The left atrium is mildly dilated. Right atrial size is normal. The mitral valve is grossly normal. There is mild mitral regurgitation. The tricuspid valve is not well visualized, but is grossly normal. There is mild tricuspid regurgitation. The aortic valve opens well. Mild aortic regurgitation. The pulmonic valve is not well visualized. The aortic root is normal size. Normal aortic arch, descending and ascending aorta There is no pericardial effusion. Ben Niremberg 09/23/2019, 11:57 AM Ordering Physician: Krystyna Stafford Referring Physician: KRYSTYNA STAFFORD Performed By: Dinorah Villaseñor
--- NOTE | 2019-09-23 12:17 | PN ---
Progress Note, Physician - Current Medication List Current Medications: Active Medications Acetaminophen (Tylenol -) 650 mg PO Q4H PRN PRN Reason: FEVER Last Admin: 09/23/19 06:31 Dose: 650 mg Documented by: Amlodipine Besylate (Norvasc -) 10 mg PO DAILY [facility] Last Admin: 09/23/19 09:43 Dose: 10 mg Documented by: Aspirin (Ecotrin -) 81 mg PO DAILY [facility] Last Admin: 09/23/19 09:43 Dose: 81 mg Documented by: Atorvastatin Calcium (Lipitor -) 40 mg PO HS [facility] Last Admin: 09/22/19 22:23 Dose: 40 mg Documented by: Enoxaparin Sodium (Lovenox -) 40 mg SQ DAILY [facility] Last Admin: 09/23/19 09:43 Dose: 40 mg Documented by: Glimepiride (Amaryl -) 4 mg PO ACBK [facility] Last Admin: 09/23/19 06:28 Dose: 4 mg Documented by: Ampicillin Sodium/Sulbactam (Sodium 3 gm/ Sodium Chloride) 100 mls @ 200 mls/hr IVPB Q8H-IV [facility] Last Admin: 09/23/19 09:43 Dose: 200 mls/hr Documented by: Insulin Aspart (Novolog Vial Sliding Scale -) 1 vial SQ TIDAC [facility]; Protocol Last Admin: 09/23/19 11:24 Dose: Not Given Documented by: Lisinopril (Prinivil) 20 mg PO DAILY [facility] Last Admin: 09/23/19 09:43 Dose: 20 mg Documented by: - Objective Vital Signs: Vital Signs Temperature 97.7 F 09/23/19 10:00 Pulse Rate 72 09/23/19 10:00 Respiratory Rate 20 09/23/19 10:00 Blood Pressure 119/63 09/23/19 10:00 O2 Sat by Pulse Oximetry (%) 93 L 09/23/19 10:00 Labs: CBC, BMP 09/23/19 08:46 09/23/19 08:46
--- NOTE | 2019-09-23 14:40 | PN ---
Progress Note (short form) - Note Progress Note: SURGERY 54yo M h/o hidradenitis s/p I&D buttock 09/16 was reconsulted to surgery for evaluation of new Left groin abscess. Pt states he noticed some painful swelling in his Left groin/buttock. Pt denies fever, chills. Last Vital Signs Temp Pulse Resp BP Pulse Ox 99 F 84 16 121/66 93 L 09/23/19 13:50 09/23/19 13:50 09/23/19 13:50 09/23/19 13:50 09/23/19 10:00 CBC, BMP 09/23/19 08:46 09/23/19 08:46 PE: Gen: A&O X3 Resp: breathing comfortably Groin shows 3cm x 3cm tender fluctulant collection on Left buttock/lateral peritoneum, with active drainage of pus through small opening. Problem List - Problems (1) Abscess and cellulitis of gluteal region Assessment/Plan: Plan -collection appears to be actively draining, so would not recommend I&D at this time. It is best to try and avoid I&D in hidradenitis if possible as can lead to more complications. -recommend warm compresses as often as possible to promote drainage, abx as per Med/ID -pt should follow up with Plastic surgery (Laura) at the wound care clinic for follow up of hidradenitis. Pt discussed with Dr. Guzmán who agrees with plan. Code(s): L02.31 - CUTANEOUS ABSCESS OF BUTTOCK; L03.317 - CELLULITIS OF BUTTOCK
--- NOTE | 2019-09-23 18:26 | PN ---
Teaching Attending Note Name of Resident: Pablo Hamilton ATTENDING PHYSICIAN STATEMENT I saw and evaluated the patient. I reviewed the resident's note and discussed the case with the resident. I agree with the resident's findings and plan as documented. SUBJECTIVE: no fever or chills. no SOB. feels well today OBJECTIVE: NAD, cooperative today CV: RRr, no MRG Lungs: CTAB Skin: L upper posterior thigh with an indurated, and fluctuant area ( 2 -3 cm in diameter ). L buttock with a star shaped wound with clean base and no surrounding erythema inner buttock areas with induration ASSESSMENT AND PLAN: 54 y/o man with h/o DM, HTN, PVD, Hlp, diverticulitis , and ETOH abuse, who presented with buttock area paina nd was found to have abscesses 1- buttock abscesses, inguinal hydradenitis suppurativa. - cont Unasyn - case was d/dw Fritz form sx,. the upper thigh abscess was draining and puss was expressed by him. surgical procedure was deferred today. will evaluate tomorrow 2- DM : A1c of 8 . - cont home glemiperide and dc HS coverage of SSI 3- Normocytic anemia: likely ACD. Iron studies need to be repeated as out tp 4- HTN: Norvasc and lisinopril 5- DVT px: lovenox
--- NOTE | 2019-09-23 18:39 | PN ---
Physical Exam: SUBJECTIVE: No overnight events. Patient seen and examined. NAD. ROS negative. OBJECTIVE: Vital Signs Period Temp Pulse Resp BP Sys/Bennett Pulse Ox Last 24 Hr 97.7 F-99.9 F 70-84 16-20 119-122/56-66 93-98 GENERAL: The patient is awake, alert, and fully oriented HEENT: NT, NC, MMM LUNGS: Breath sounds equal, clear to auscultation bilaterally, no wheezes, no crackles, no accessory muscle use. HEART: Regular rate and rhythm, S1, S2 without murmur, rub or gallop. ABDOMEN: Soft, nontender, nondistended, normoactive bowel sounds, no guarding, no rebound EXTREMITIES: Inguinal lymph nodes enlarged b/l; purple skin tag in inguinal crease. R inguinal hernia. Abscess on Left buttock w/ minimal drainage; covered by dressing s/p I&D. Not TTP. Fluctant region on Left upper posterior thigh near scrotum; TTP. Inner portion of Intergluteal fold demonstrated sinus tracts and induration NEUROLOGICAL: Normal speech, gait not observed. PSYCH: normal affect. SKIN: Warm, dry, normal turgor, no rashes or lesions noted Laboratory Results - last 24 hr 09/22/19 09/23/19 09/23/19 21:18 06:29 08:46 WBC 10.2 H RBC 3.42 L Hgb 9.1 L Hct 28.6 L D MCV 83.6 MCH 26.5 MCHC 31.7 L RDW 15.4 Plt Count 394 D MPV 6.3 L Absolute Neuts (auto) 7.7 Neutrophils % 76.0 Lymphocytes % 15.6 D Monocytes % 5.5 Eosinophils % 2.6 Basophils % 0.3 Nucleated RBC % 0 Sodium Potassium Chloride Carbon Dioxide Anion Gap BUN Creatinine Est GFR (CKD-EPI)AfAm Est GFR (CKD-EPI)NonAf POC Glucometer 263 169 Random Glucose Calcium Phosphorus Magnesium Total Bilirubin AST ALT Alkaline Phosphatase Total Protein Albumin 09/23/19 09/23/19 09/23/19 08:46 11:05 16:48 WBC RBC Hgb Hct MCV MCH MCHC RDW Plt Count MPV Absolute Neuts (auto) Neutrophils % Lymphocytes % Monocytes % Eosinophils % Basophils % Nucleated RBC % Sodium 138 Potassium 3.3 L Chloride 106 Carbon Dioxide 18 L Anion Gap 14 BUN 6.0 L Creatinine 1.0 Est GFR (CKD-EPI)AfAm 97.08 Est GFR (CKD-EPI)NonAf 83.76 POC Glucometer 108 123 Random Glucose 191 H Calcium 8.0 L Phosphorus 2.3 L Magnesium 2.3 Total Bilirubin 0.4 AST 9 L ALT 13 Alkaline Phosphatase 55 Total Protein 6.9 Albumin 2.1 L Active Medications Generic Name Dose Route Start Last Admin Trade Name Freq PRN Reason Stop Dose Admin Acetaminophen 650 mg 09/16/19 17:14 09/23/19 06:31 Tylenol - PO 650 mg Q4H PRN Administration FEVER Amlodipine Besylate 10 mg 09/17/19 10:00 09/23/19 09:43 Norvasc - PO 10 mg DAILY [facility] Administration Aspirin 81 mg 09/17/19 10:00 09/23/19 09:43 Ecotrin - PO 81 mg DAILY [facility] Administration Atorvastatin Calcium 40 mg 09/16/19 23:45 09/22/19 22:23 Lipitor - PO 40 mg HS [facility] Administration Glimepiride 4 mg 09/23/19 07:00 09/23/19 06:28 Amaryl - PO 4 mg ACBK [facility] Administration Ampicillin Sodium/Sulbactam 100 mls @ 200 mls/hr 09/22/19 18:00 09/23/19 17:46 Sodium 3 gm/ Sodium Chloride IVPB 200 mls/hr Q8H-IV [facility] Administration Insulin Aspart 1 vial 09/22/19 18:45 09/23/19 16:56 Novolog Vial Sliding Scale - SQ Not Given TIDAC [facility] Protocol Lisinopril 20 mg 09/17/19 10:00 09/23/19 09:43 Prinivil PO 20 mg DAILY [facility] Administration ECHO: LA: mildly dilated;; mild mitral, tricuspid, aortic regurg. pulmonic valve NOT well visualized. L buttock abscess cx: strep agalactiae Group B, streptococcus Bovis CXR: interstitial and airspace opacities/pneumonic infiltrates in R lower & to a lesser extent in the R midlung. ASSESSMENT/PLAN: 54 YO M PMH PVD, DM, HLD, HTN, diverticulitis, EtOH/sedative/nicotine dependence, substance induced sleep disorder, & Hep C ab positive who presents with inguinal abscesses & hernias, and an abscess on L buttock with drainage. Admitted for sepsis 2/2 to cellulitis. #Sepsis 2/2 to Cellulitis Abscess on Left buttock, abscess on Upper L thigh, hidradenitis suppurativa in inguinal area -s/p I&D for L buttock (09/16). -refused HIV testing -lactic acidosis & leukocytosis improved. Will monitor WBC -surgery c/s appreciated. upper thigh abscess had purulent drainage, so I&D was not recommended for today. I&D was not recommended for hidradenitis. warm compresses to promote drainage. -c/w IV Ampicllin/sulbacam -f/u blood cx #DM -Hgb A1C: 8.0 -c/w ISS TID AC -c/w home med glimepiride 4 mg PO #Anemia -H&H decreased. Iron low. ferritin elevated, TIBC/transferrin low. MCV normal. Likely anemia of chronic disease -f/u iron studies outpatient #HTN: c/w home meds amlodipine 10 mg PO, lisinopril 20 mg PO #HLD: c/w home meds atorvastatin 40 mg PO #PVD: c/w home meds aspirin 81 mg #FEN -no IV fluids -K+ was 3.3. P 2.3. K+ was repleted w/ Kphos in NS. monitor lytes -Diabetic diet #DVT ppx -Lovenox 40 mg SQ #DISPO maintain on med surg -Outpt colonoscopy because streptococcus Bovis on cx -should f/u with Plastic surgery (Laura) at wound care clinic f/u hidradenitis as per sgy c/s -f/u iron studies outpatient Visit type - Emergency Visit Emergency Visit: Yes ED Registration Date: 09/16/19 Care time: The patient presented to the Emergency Department on the above date and was hospitalized for further evaluation of their emergent condition. - New Patient This patient is new to me today: No - Critical Care Critical Care patient: No ATTENDING PHYSICIAN STATEMENT I saw and evaluated the patient. I reviewed the resident's note and discussed the case with the resident. I agree with the resident's findings and plan as documented. SUBJECTIVE: OBJECTIVE: ASSESSMENT AND PLAN:
[2019-09-23] MEDS ORDERED: INSULIN (NOVOLOG) ASPART 100 UNITS/ML 10ML VIAL ONE (21:12)
[2019-09-23] MEDS: ATORVASTATIN CA 40 MG TABLET (FP) PO SCH (21:20)
[2019-09-23] MEDS: POTASSIUM PHOSPHATE 30 MM in SODIUM CHLORIDE 500 ML IVPB ONE ×2 (21:23→21:45)
[2019-09-23] MEDS ORDERED: POTASSIUM CHLORIDE TABS 20 MEQ TABLET.ER (FP) PO ONE (21:56)
[2019-09-23] MEDS ORDERED: LIDOCAINE 5% TOPICAL PATCH TP ONE ×2 (21:58→22:15)
[2019-09-23] MEDS: LIDOCAINE PATCH REMOVAL MC SCH (22:00)
[2019-09-23] MEDS ORDERED: NAPH,MB-DB/K PH,MBDB POWDER PACKET PO ONE (22:11)
[2019-09-24] MEDS: AMPICILLIN NA/SULBACTAM NA 3 GM in SODIUM CHLORIDE 100 ML IVPB SCH ×4 (02:50→18:34)
[2019-09-24] MEDS ORDERED: PT OWN MED DRAWER 7, Y5N ONE (05:48)
[2019-09-24] MEDS: GLIMEPIRIDE 4 MG TABLET PO SCH (06:44)
[2019-09-24] MEDS: INSULIN SLIDING SCALE (NOVOLOG) 1 VIAL SQ SCH ×3 (06:44→16:52)
[2019-09-24] MEDS: ACETAMINOPHEN 325 MG TABLET (FP) PO PRN (06:44)
[2019-09-24 08:46] LABS: BASO % 0.4 % (0-2.0); EOS % 2.5 % (0-4.5); HEMATOCRIT 24.8 % (35.4-49); HEMOGLOBIN 7.9 GM/dL (11.7-16.9); LYMPH % 14.9 % (8-40); MCH 26.8 pg (25.7-33.7); MEAN CELL VOLUME 83.7 fl (80-96); MEAN PLT VOLUME 6.2 fl (7.5-11.1); MONO % 5.6 % (3.8-10.2); NEUT % 76.6 % (42.8-82.8); PLATELET COUNT 339 K/MM3 (134-434); RBC 2.96 M/mm3 (4.00-5.60); RDW 15.8 % (11.9-15.9); WHITE BLOOD COUNT 7.7 K/mm3 (4.0-10.0)
[2019-09-24 09:20] LABS: BILIRUBIN,TOTAL 0.6 mg/dL (0.2-1); BLOOD UREA NITROGEN 6.8 mg/dL (7-18); CALCIUM 7.7 mg/dL (8.5-10.1); CREATININE 0.7 mg/dL (0.55-1.3); MAGNESIUM 2.3 mg/dL (1.8-2.4); PHOSPHOROUS 2.7 mg/dL (2.5-4.9); POTASSIUM 3.6 mmol/L (3.5-5.1); TOT PROT 6.3 g/dl (6.4-8.2)
[2019-09-24] MEDS: amLODIPine BESYLATE 10 MG TABLET (FP) PO SCH (09:26)
[2019-09-24] MEDS: ASPIRIN COATED 81 MG TABLET.EC PO SCH (09:26)
[2019-09-24] MEDS: LISINOPRIL 20 MG TABLET (FP) PO SCH (09:26)
--- NOTE | 2019-09-24 11:16 | PN ---
Progress Note, Physician History of Present Illness: refusing everything refusing iv abx does not want anything to be done - Current Medication List Current Medications: Active Medications Acetaminophen (Tylenol -) 650 mg PO Q4H PRN PRN Reason: FEVER Last Admin: 09/24/19 06:44 Dose: 650 mg Documented by: Amlodipine Besylate (Norvasc -) 10 mg PO DAILY [facility] Last Admin: 09/24/19 09:26 Dose: 10 mg Documented by: Aspirin (Ecotrin -) 81 mg PO DAILY [facility] Last Admin: 09/24/19 09:26 Dose: 81 mg Documented by: Atorvastatin Calcium (Lipitor -) 40 mg PO HS [facility] Last Admin: 09/23/19 21:20 Dose: 40 mg Documented by: Glimepiride (Amaryl -) 4 mg PO ACBK [facility] Last Admin: 09/24/19 06:44 Dose: 4 mg Documented by: Ampicillin Sodium/Sulbactam (Sodium 3 gm/ Sodium Chloride) 100 mls @ 200 mls/hr IVPB Q8H-IV [facility] Last Admin: 09/24/19 10:09 Dose: Not Given Documented by: Insulin Aspart (Novolog Vial Sliding Scale -) 1 vial SQ TIDAC [facility]; Protocol Last Admin: 09/24/19 06:44 Dose: Not Given Documented by: Lisinopril (Prinivil) 20 mg PO DAILY [facility] Last Admin: 09/24/19 09:26 Dose: 20 mg Documented by: Miscellaneous (Lidoderm Patch Removal) 1 each MC DAILY@2200 [facility] Last Admin: 09/23/19 22:00 Dose: Not Given Documented by: - Objective Vital Signs: Vital Signs Temperature 98.2 F 09/24/19 10:00 Pulse Rate 77 09/24/19 10:00 Respiratory Rate 20 09/24/19 10:00 Blood Pressure 132/77 09/24/19 10:00 O2 Sat by Pulse Oximetry (%) 95 09/24/19 10:00 Constitutional: Yes: No Distress, Calm Cardiovascular: Yes: S1, S2 Respiratory: Yes: Regular, CTA Bilaterally Gastrointestinal: Yes: Normal Bowel Sounds, Soft Musculoskeletal: Yes: WNL Extremities: Yes: Other Neurological: Yes: Alert, Other Psychiatric: Yes: Other Labs: CBC, BMP 09/24/19 07:57 09/24/19 07:57 Assessment/Plan roblem List - Problems (1) Left buttock abscess Code(s): L02.31 - CUTANEOUS ABSCESS OF BUTTOCK (2) Alcohol dependence Code(s): F10.20 - ALCOHOL DEPENDENCE, UNCOMPLICATED (3) DM type 2 (diabetes mellitus, type 2) Code(s): E11.9 - TYPE 2 DIABETES MELLITUS WITHOUT COMPLICATIONS (4) Sedative dependence Code(s): F13.20 - SEDATIVE, HYPNOTIC OR ANXIOLYTIC DEPENDENCE, UNCOMPLICATED (5) H/O hidradenitis suppurativa Code(s): Z87.2 - PERSONAL HISTORY OF DISEASES OF THE SKIN, SUBCU (6) Hepatitis C Code(s): B19.20 - UNSPECIFIED VIRAL HEPATITIS C WITHOUT HEPATIC COMA (7) Nicotine dependence Code(s): F17.200 - NICOTINE DEPENDENCE, UNSPECIFIED, UNCOMPLICATED Assessment/Plan Lt buttock abscess s/p I+D Rt upper scotal purulence/small abscess Hx of hydraadenitis DM Hep C + ETOH/sedative/nicotine dependence plan continue current mgmt if patient refusing everything can change to oral augmentin
--- NOTE | 2019-09-24 16:25 | PN ---
Progress Note (short form) - Note Progress Note: SURGERY 54yo M h/o hidradenitis s/p I&D buttock 09/16 was reconsulted to surgery for evaluation of new Left groin abscess. Pt states he noticed some painful swelling in his Left groin/buttock. Medicine concerned for new abscess and pt having fevers. Last Vital Signs Temp Pulse Resp BP Pulse Ox 98.2 F 77 20 132/77 95 09/24/19 10:00 09/24/19 10:00 09/24/19 10:00 09/24/19 10:00 09/24/19 10:00 PE: Gen: A&O X3 Resp: breathing comfortably Groin shows 4cm x 3cm tender fluctulant collection on Left buttock/lateral peritoneum, with active drainage of pus through small opening. About 10cc pus drained at bedside. Problem List - Problems (1) Abscess and cellulitis of gluteal region Assessment/Plan: Plan -collection appears to be actively draining, so would not recommend I&D at this time. It is best to try and avoid I&D in hidradenitis if possible as can lead to more complications. -recommend warm compresses as often as possible to promote drainage, abx as per Med/ID -pt should follow up with Hidradenitis clinic at [facility] for follow up. Pt seen with Dr. Moya who agrees with plan Code(s): L02.31 - CUTANEOUS ABSCESS OF BUTTOCK; L03.317 - CELLULITIS OF BUTTOCK
--- NOTE | 2019-09-24 18:21 | PN ---
Teaching Attending Note Name of Resident: Pablo Hamilton ATTENDING PHYSICIAN STATEMENT I saw and evaluated the patient. I reviewed the resident's note and discussed the case with the resident. I agree with the resident's findings and plan as documented. SUBJECTIVE: seen around 12 pm No fever or chills. no pain. refused IV abx and removed his IV. OBJECTIVE: NAD, cooperative CV: RRr, no MRG Lungs: CTAB Skin: L upper posterior thigh with a fluctuant area ( 2 -3 cm in diameter ). no drainage was seen L buttock with a star shaped wound with clean base and no surrounding erythema inner buttock areas with induration. groins with induration, scarring, sinus tracks, and some discharge in R groin . ASSESSMENT AND PLAN: 54 y/o man with h/o DM, HTN, PVD, Hlp, diverticulitis , and ETOH abuse, who presented with buttock area paina nd was found to have abscesses 1- buttock abscesses, inguinal hydradenitis suppurativa. L thigh abscess - cont Unasyn . he is agreeable to a new IV and Abx - had fever yesterday - case was abner matt and Patrizia Welch who evaluated L thigh abscess. Puss expressed again, and surgical intervention was not recommended 2- DM : A1c of 8. - cont home glemiperide and SSI 3- Normocytic anemia: likely ACD. Iron studies need to be repeated as out tp 4- HTN: Norvasc and lisinopril 5- DVT px: lovenox Anticipate dc in 1 -2 days if no fever and pending Id Recs
[2019-09-24] MEDS: ATORVASTATIN CA 40 MG TABLET (FP) PO SCH (21:12)
[2019-09-24] MEDS: LIDOCAINE PATCH REMOVAL MC SCH (21:13)
--- NOTE | 2019-09-24 21:24 | PN ---
Physical Exam: SUBJECTIVE: Pt pulled IV out and refused IV insertion due to pain of IV insertion. Patient seen and examined. NAD. Reported non-bloody diarrhea last night. ROS negative. Pt later amenable to IV insertion during team rounds. OBJECTIVE: Vital Signs Period Temp Pulse Resp BP Sys/Bennett Pulse Ox Last 24 Hr 98.2 F-99.2 F 77-86 18-75 103-132/56-77 95 GENERAL: The patient is awake, alert, and fully oriented HEENT: NT, NC, MMM LUNGS: Breath sounds equal, clear to auscultation bilaterally, no wheezes, no crackles, no accessory muscle use. HEART: Regular rate and rhythm, S1, S2 without murmur, rub or gallop. ABDOMEN: Soft, nontender, nondistended, normoactive bowel sounds, no guarding, no rebound EXTREMITIES: Inguinal lymph nodes enlarged b/l; purple skin tag in inguinal crease. R inguinal hernia. Abscess on Left buttock w/ minimal drainage; covered by dressing s/p I&D. Not TTP. Fluctant region on Left upper posterior thigh draining fluid. Abscess near scrotum TTP & does not express fluid. NEUROLOGICAL: Normal speech, gait not observed. PSYCH: normal affect. SKIN: Warm, dry, normal turgor, no rashes or lesions noted Laboratory Results - last 24 hr 09/24/19 09/24/19 09/24/19 06:43 07:57 07:57 WBC 7.7 RBC 2.96 L Hgb 7.9 L Hct 24.8 L MCV 83.7 MCH 26.8 MCHC 32.0 RDW 15.8 Plt Count 339 MPV 6.2 L Absolute Neuts (auto) 5.9 Neutrophils % 76.6 Lymphocytes % 14.9 Monocytes % 5.6 Eosinophils % 2.5 Basophils % 0.4 Nucleated RBC % 0 Sodium 137 Potassium 3.6 Chloride 107 Carbon Dioxide 22 Anion Gap 8 BUN 6.8 L Creatinine 0.7 Est GFR (CKD-EPI)AfAm 122.27 Est GFR (CKD-EPI)NonAf 105.50 POC Glucometer 138 Random Glucose 134 H Calcium 7.7 L Phosphorus 2.7 Magnesium 2.3 Total Bilirubin 0.6 AST 7 L ALT 10 L Alkaline Phosphatase 48 Total Protein 6.3 L Albumin 2.0 L 09/24/19 09/24/19 09/24/19 11:25 16:42 20:53 WBC RBC Hgb Hct MCV MCH MCHC RDW Plt Count MPV Absolute Neuts (auto) Neutrophils % Lymphocytes % Monocytes % Eosinophils % Basophils % Nucleated RBC % Sodium Potassium Chloride Carbon Dioxide Anion Gap BUN Creatinine Est GFR (CKD-EPI)AfAm Est GFR (CKD-EPI)NonAf POC Glucometer 102 124 122 Random Glucose Calcium Phosphorus Magnesium Total Bilirubin AST ALT Alkaline Phosphatase Total Protein Albumin Active Medications Generic Name Dose Route Start Last Admin Trade Name Freq PRN Reason Stop Dose Admin Acetaminophen 650 mg 09/16/19 17:14 09/24/19 06:44 Tylenol - PO 650 mg Q4H PRN Administration FEVER Amlodipine Besylate 10 mg 09/17/19 10:00 09/24/19 09:26 Norvasc - PO 10 mg DAILY [facility] Administration Aspirin 81 mg 09/17/19 10:00 09/24/19 09:26 Ecotrin - PO 81 mg DAILY [facility] Administration Atorvastatin Calcium 40 mg 09/16/19 23:45 09/24/19 21:12 Lipitor - PO 40 mg HS [facility] Administration Glimepiride 4 mg 09/23/19 07:00 09/24/19 06:44 Amaryl - PO 4 mg ACBK [facility] Administration Ampicillin Sodium/Sulbactam 100 mls @ 200 mls/hr 09/22/19 18:00 09/24/19 18:34 Sodium 3 gm/ Sodium Chloride IVPB 200 mls/hr Q8H-IV [facility] Administration Insulin Aspart 1 vial 09/22/19 18:45 09/24/19 16:52 Novolog Vial Sliding Scale - SQ Not Given TIDAC [facility] Protocol Lisinopril 20 mg 09/17/19 10:00 09/24/19 09:26 Prinivil PO 20 mg DAILY [facility] Administration Miscellaneous 1 each 09/23/19 22:00 09/24/19 21:13 Lidoderm Patch Removal MC Not Given DAILY@2200 [facility] ECHO: LA: mildly dilated;; mild mitral, tricuspid, aortic regurg. pulmonic valve NOT well visualized. L buttock abscess cx: strep agalactiae Group B, streptococcus Bovis CXR: interstitial and airspace opacities/pneumonic infiltrates in R lower & to a lesser extent in the R midlung. ASSESSMENT/PLAN: 54 YO M PMH PVD, DM, HLD, HTN, diverticulitis, EtOH/sedative/nicotine dependence, substance induced sleep disorder, & Hep C ab positive who presents with inguinal abscesses & hernias, and an abscess on L buttock with drainage. Admitted for sepsis 2/2 to cellulitis. #Sepsis 2/2 to Cellulitis Abscess on Left buttock, abscess on Upper L thigh, hidradenitis suppurativa in inguinal area -s/p I&D for L buttock (09/16). -refused HIV testing -lactic acidosis & leukocytosis improved. Will monitor WBC -surgery was consulted again because pt had 100.3 F fever 6 PM last night, with fluctuant, non-draining abscess. surgery c/s appreciated. abscess was found to be actively draining on their exam, so I&D was not recommended for today. I&D was not recommended for hidradenitis. warm compresses to promote drainage. -c/w IV Ampicllin/sulbacam -f/u at Hidradenitis clinic at [facility] #DM -Hgb A1C: 8.0 -c/w ISS TID AC -c/w home med glimepiride 4 mg PO #Diarrhea -will order c. diff if diarrhea again tomorrow #Anemia -H&H decreased. Iron low. ferritin elevated, TIBC/transferrin low. MCV normal. Likely anemia of chronic disease -f/u iron studies outpatient #HTN: c/w home meds amlodipine 10 mg PO, lisinopril 20 mg PO #HLD: c/w home meds atorvastatin 40 mg PO #PVD: c/w home meds aspirin 81 mg #FEN -no IV fluids -monitor lytes -Diabetic diet #DVT ppx -Lovenox 40 mg SQ #DISPO maintain on med surg -Outpt colonoscopy because streptococcus Bovis on cx -should f/u with Plastic surgery (Laura) at wound care clinic f/u hidradenitis as per sgy c/s OR Hidradenitis clinic at [facility] -f/u iron studies outpatient Visit type - Emergency Visit Emergency Visit: Yes ED Registration Date: 09/16/19 Care time: The patient presented to the Emergency Department on the above date and was hospitalized for further evaluation of their emergent condition. - New Patient This patient is new to me today: No - Critical Care Critical Care patient: No ATTENDING PHYSICIAN STATEMENT I saw and evaluated the patient. I reviewed the resident's note and discussed the case with the resident. I agree with the resident's findings and plan as documented. SUBJECTIVE: OBJECTIVE: ASSESSMENT AND PLAN:
[2019-09-25] MEDS ORDERED: PT OWN MED DRAWER 7, Y5N ONE ×2 (00:43→05:48)
[2019-09-25] MEDS: AMPICILLIN NA/SULBACTAM NA 3 GM in SODIUM CHLORIDE 100 ML IVPB SCH ×2 (02:00→09:42)
[2019-09-25] MEDS: INSULIN SLIDING SCALE (NOVOLOG) 1 VIAL SQ SCH (06:24)
[2019-09-25] MEDS: GLIMEPIRIDE 4 MG TABLET PO SCH (06:24)
[2019-09-25 09:20] LABS: EOS % 3.7 % (0-4.5); HEMOGLOBIN 7.9 GM/dL (11.7-16.9); LYMPH % 18.2 % (8-40); MCH 26.4 pg (25.7-33.7); MCHC 31.5 g/dl (32.0-35.9); MEAN CELL VOLUME 83.8 fl (80-96); MEAN PLT VOLUME 7.3 fl (7.5-11.1); MONO % 5.5 % (3.8-10.2); NEUT % 71.6 % (42.8-82.8); PLATELET COUNT 296 K/MM3 (134-434); RBC 2.99 M/mm3 (4.00-5.60); RDW 15.4 % (11.9-15.9); WHITE BLOOD COUNT 6.5 K/mm3 (4.0-10.0)
[2019-09-25] MEDS: LISINOPRIL 20 MG TABLET (FP) PO SCH (09:41)
[2019-09-25] MEDS: amLODIPine BESYLATE 10 MG TABLET (FP) PO SCH (09:41)
[2019-09-25] MEDS: ASPIRIN COATED 81 MG TABLET.EC PO SCH (09:42)
[2019-09-25 10:11] LABS: ALBUMIN 2.1 g/dl (3.4-5.0); BLOOD UREA NITROGEN 7.6 mg/dL (7-18); CALCIUM 8.1 mg/dL (8.5-10.1); MAGNESIUM 2.4 mg/dL (1.8-2.4); POTASSIUM 3.9 mmol/L (3.5-5.1)
[2019-09-25 10:15] LABS: BILIRUBIN,TOTAL 0.3 mg/dL (0.2-1); CREATININE 0.7 mg/dL (0.55-1.3); TOT PROT 6.8 g/dl (6.4-8.2)
--- NOTE | 2019-09-25 10:49 | PN ---
Progress Note, Physician History of Present Illness: feels uncomfortable in the stomach no dirrhoea - Current Medication List Current Medications: Active Medications Acetaminophen (Tylenol -) 650 mg PO Q4H PRN PRN Reason: FEVER Last Admin: 09/24/19 06:44 Dose: 650 mg Documented by: Amlodipine Besylate (Norvasc -) 10 mg PO DAILY [facility] Last Admin: 09/25/19 09:41 Dose: 10 mg Documented by: Aspirin (Ecotrin -) 81 mg PO DAILY [facility] Last Admin: 09/25/19 09:42 Dose: 81 mg Documented by: Atorvastatin Calcium (Lipitor -) 40 mg PO HS [facility] Last Admin: 09/24/19 21:12 Dose: 40 mg Documented by: Glimepiride (Amaryl -) 4 mg PO ACBK [facility] Last Admin: 09/25/19 06:24 Dose: 4 mg Documented by: Ampicillin Sodium/Sulbactam (Sodium 3 gm/ Sodium Chloride) 100 mls @ 200 mls/hr IVPB Q8H-IV [facility] Last Admin: 09/25/19 09:42 Dose: 200 mls/hr Documented by: Insulin Aspart (Novolog Vial Sliding Scale -) 1 vial SQ TIDAC [facility]; Protocol Last Admin: 09/25/19 06:24 Dose: Not Given Documented by: Lisinopril (Prinivil) 20 mg PO DAILY [facility] Last Admin: 09/25/19 09:41 Dose: 20 mg Documented by: Miscellaneous (Lidoderm Patch Removal) 1 each MC DAILY@2200 [facility] Last Admin: 09/24/19 21:13 Dose: Not Given Documented by: - Objective Vital Signs: Vital Signs Temperature 98.7 F 09/25/19 06:00 Pulse Rate 75 09/25/19 06:00 Respiratory Rate 20 09/25/19 06:00 Blood Pressure 125/60 09/25/19 06:00 O2 Sat by Pulse Oximetry (%) 96 09/24/19 21:00 Constitutional: Yes: Calm, Mild Distress Cardiovascular: Yes: S1, S2 Respiratory: Yes: Regular, CTA Bilaterally Gastrointestinal: Yes: Normal Bowel Sounds, Soft Musculoskeletal: Yes: WNL Extremities: Yes: Other Wound/Incision: Yes: Dressing Dry and Intact Neurological: Yes: Alert, Oriented Psychiatric: Yes: Alert, Oriented Labs: CBC, BMP 09/25/19 08:38 07 08:38 Assessment/Plan kristy List - Problems (1) Left buttock abscess Code(s): L02.31 - CUTANEOUS ABSCESS OF BUTTOCK (2) Alcohol dependence Code(s): F10.20 - ALCOHOL DEPENDENCE, UNCOMPLICATED (3) DM type 2 (diabetes mellitus, type 2) Code(s): E11.9 - TYPE 2 DIABETES MELLITUS WITHOUT COMPLICATIONS (4) Sedative dependence Code(s): F13.20 - SEDATIVE, HYPNOTIC OR ANXIOLYTIC DEPENDENCE, UNCOMPLICATED (5) H/O hidradenitis suppurativa Code(s): Z87.2 - PERSONAL HISTORY OF DISEASES OF THE SKIN, SUBCU (6) Hepatitis C Code(s): B19.20 - UNSPECIFIED VIRAL HEPATITIS C WITHOUT HEPATIC COMA (7) Nicotine dependence Code(s): F17.200 - NICOTINE DEPENDENCE, UNSPECIFIED, UNCOMPLICATED Assessment/Plan Lt buttock abscess s/p I+D Rt upper scotal purulence/small abscess Hx of hydraadenitis DM Hep C + ETOH/sedative/nicotine dependence plan continue current mgmt wound care
[2019-09-25 13:16] VITALS: BP 132/67
[2019-09-25 14:45] VITALS: PULSE 103; TEMP 99.2
--- NOTE | 2019-09-25 15:00 | PN ---
Teaching Attending Note Name of Resident: Pablo Hamilton ATTENDING PHYSICIAN STATEMENT I saw and evaluated the patient. I reviewed the resident's note and discussed the case with the resident. I agree with the resident's findings and plan as documented. SUBJECTIVE: no fever or chills . pain is better OBJECTIVE: NAD, awake, alert. Skin: declined buttock area exam. groins exam did not change frm yesterday. upper thigh abscess is smaller today. ASSESSMENT AND PLAN: 54 y/o man with h/o DM, HTN, PVD, Hlp, diverticulitis , and ETOH abuse, who presented with buttock area paina nd was found to have abscesses 1- buttock abscesses, hydradenitis suppurativa. L thigh abscess. - d/w dr. Low, use Augmentin x 7 more days - will refer to hydradenitis clinic in [facility] - wound packing daily ,and follow up with dr. Polanco 2- DM : A1c of 8. - cont home glemiperide at dc 3- Normocytic anemia: likely ACD. Iron studies need to be repeated as out tp 4- HTN: Norvasc and lisinopril dc home today
--- NOTE | 2019-09-25 22:13 | DS ---
Physical Exam: SUBJECTIVE: No overnight events. Patient seen and examined. NAD. ROS negative. OBJECTIVE: Vital Signs Period Temp Pulse Resp BP Sys/Bennett Pulse Ox Last 24 Hr 98.7 F-99.2 F 75-103 18-20 125-132/60-67 PHYSICAL EXAM GENERAL: The patient is awake, alert, and fully oriented HEENT: NT, NC, MMM LUNGS: Breath sounds equal, clear to auscultation bilaterally, no wheezes, no crackles, no accessory muscle use. HEART: Regular rate and rhythm, S1, S2 without murmur, rub or gallop. ABDOMEN: Soft, nontender, nondistended, normoactive bowel sounds, no guarding, no rebound EXTREMITIES: Inguinal lymph nodes enlarged b/l; purple skin tag in inguinal crease. R inguinal hernia. S/p I&D site of Left buttock abscess is non- erythematous w/ no drainage; covered by dressing s/p I&D. Not TTP. Left upper posterior thigh abscess, and abscess near scrotum is draining fluid. NEUROLOGICAL: Normal speech, gait not observed. PSYCH: normal affect. SKIN: Warm, dry, normal turgor, no rashes or lesions noted LABS Laboratory Results - last 24 hr 09/25/19 09/25/19 09/25/19 05:51 08:38 08:38 WBC 6.5 RBC 2.99 L Hgb 7.9 L Hct 25.0 L MCV 83.8 MCH 26.4 MCHC 31.5 L RDW 15.4 Plt Count 296 MPV 7.3 L D Absolute Neuts (auto) 4.6 Neutrophils % 71.6 Lymphocytes % 18.2 D Monocytes % 5.5 Eosinophils % 3.7 Basophils % 1.0 Nucleated RBC % 0 Sodium 138 Potassium 3.9 Chloride 108 H Carbon Dioxide 23 Anion Gap 8 BUN 7.6 Creatinine 0.7 Est GFR (CKD-EPI)AfAm 122.27 Est GFR (CKD-EPI)NonAf 105.50 POC Glucometer 104 Random Glucose 89 Calcium 8.1 L Phosphorus 3.0 Magnesium 2.4 Total Bilirubin 0.3 AST 10 L ALT 11 L Alkaline Phosphatase 51 Total Protein 6.8 Albumin 2.1 L 09/25/19 11:00 WBC RBC Hgb Hct MCV MCH MCHC RDW Plt Count MPV Absolute Neuts (auto) Neutrophils % Lymphocytes % Monocytes % Eosinophils % Basophils % Nucleated RBC % Sodium Potassium Chloride Carbon Dioxide Anion Gap BUN Creatinine Est GFR (CKD-EPI)AfAm Est GFR (CKD-EPI)NonAf POC Glucometer 101 Random Glucose Calcium Phosphorus Magnesium Total Bilirubin AST ALT Alkaline Phosphatase Total Protein Albumin HOSPITAL COURSE: 54 YO M PMH PVD, DM, HLD, HTN, diverticulitis, EtOH/sedative/nicotine dependence, substance induced sleep disorder, & Hep C ab positive who presents with inguinal abscesses & hernias, and an abscess on L buttock with drainage. Labs were notable for lactic acid elevated at 2, then to 7 & leukocytosis. Pt was tachycardic to 121 in ED. Admitted for sepsis 2/2 to cellulitis. Pt was given vanc & zosyn. Surgery evaluated pts draining L buttock abscess & performed I&D. Lactic acidosis/leukocytosis resolved. The abscesses on the L upper posterior thigh & scrotum were evaluated by surgery. Because the abscesses were found to be actively draining on their exam, I&D was not recommended. Pt was switched to ampicillin/sulbactam. I&D was not recommended for hidradenitis. Pt was recommended to follow-up outpatient for the hidradenitis at a clinic at [facility]. He refused HIV testing. Pts symptoms improved and is stable for discharge. HgbA1C was 8.0. DM was managed with ISS and later home rx glimepiride. Hgb & Hct were decreased, with low Iron, elevated ferritin, & low TIBC/transferrin. MCV normal. This is likely anemia of chronic disease, so pt was encouraged to follow-up on iron studies outpatient. HTN, HLD, PVD were managed w/ amlodipine, lisinopril, atorvastatin, & aspirin, respectively. Because L buttock abscess grew streptococcus bovis & strep agalactiae Group B, echo was performed; Echo showed LA: mildly dilated;; mild mitral, tricuspid, aortic regurg. pulmonic valve NOT well visualized. Also, because of strep bovis, pt was recommended to get colonoscopy outpt. Date of Admission:09/16/19 ECHO: mildly dilated;; mild mitral, tricuspid, aortic regurg. pulmonic valve NOT well visualized. L buttock abscess cx: strep agalactiae Group B, streptococcus Bovis CXR: interstitial and airspace opacities/pneumonic infiltrates in R lower & to a lesser extent in the R midlung. Date of Discharge: 09/25/19 Minutes to complete discharge: 45 Discharge Summary Problems reviewed: Yes Reason For Visit: SEPSIS Condition: Improved - Instructions Diet, Activity, Other Instructions: You presented with worsening pain at your Left buttock with drainage. You were diagnosed with a buttock abscess. Your COVID test was negative. A CT scan of your abdomen showed a 8X&X4 cm L buttock abscess and an incidental Right inguinal hernia containing fat only. You were seen by Infectious Disease consultants and given piperacillin/tazobactam and vancomycin. Surgeons performed an incision and drainage of your Left buttock abscess. Your antibiotics were changed to ampicillin/sulbactam. Your scrotum wound showed no growth of organisms. Your abscess has been drained and you have been stable. Please follow-up with surgeon regarding your healing left buttock abscess. Your Hemoglobin A1C (sugar level) is 8.0; your sugar is not well-controlled. Please follow-up with medical insurance claims processor. Culture of the abscess showed sreptococcus bovis & streptococcus agalactiae group B. Because of the culture results, streptococcus bovis, please follow-up with expanded function dental assistant for a colonoscopy. FOLLOW-UP Please follow-up with your surgeon, Dr. Guzmán, for follow-up regarding your abscess. Please follow-up with your medical insurance claims processor, Dr. Loco, regarding your diabetes. Please follow-up with your expanded function dental assistant,Dr. Vyas, for colonoscopy to rule out colon cancer Please follow-up with primary care physician, Dr. Cueva, for health maintenance please follow up with urologist with in a week Dr.El mae Please follow up at the Hidradenitis Clinic(Alternate Mondays) at the [facility]([phone]) MEDICATIONS -Please START augmentin 875 mg twice a day for 7 days -Please continue with previously prescribe home medications. -You can take over the counter tylenol 650mg for pain every 6 hrs as needed ADDITIONAL INSTRUCTIONS: -Wound Care: apply a wet-to-dry packing of the [id number] gauze into your left buttock wound. Change the dressing daily. Changing the dressing will be slightly painful. This is to be expected. -Apply a warm pack to your draining abscesses and groin to promote drainage -Please avoid alcohol and nicotine. -Please continue monitoring your glucose(sugar level) at home. -Please follow a low sodium/low fat/low sugar/low carb diet. PLEASE SEEK IMMEDIATE MEDICAL EVALUATION IF YOU EXPERIENCE: - fever, chills - foul smelling drainage from your buttock wound - increased pain at your buttock wound Referrals: Guillermina Low MD [Staff Physician] - 1 Week (for wound check) Romaine Vyas DO [Staff Physician] - 2 Weeks (for colonoscopy growing strpt bovis r/o colon cancer) Jaziel Uribe MD [Staff Physician] - 1 Week Xochitl Cueva MD [Primary Care Provider] - Luke Loco MD [Staff Physician] - Herbert Guzmán [Staff Physician] - 1 Week Disposition: VNS/HOME HEALTH CARE - Home Medications Comprehensive Discharge Medication List: Ambulatory Orders Amlodipine Besylate [Norvasc -] 10 mg PO DAILY tablet 09/21/19 Aspirin Coated [Ecotrin -] 81 mg PO DAILY tablet.ec 09/21/19 Atorvastatin Ca [Lipitor] 40 mg PO HS tablet 09/21/19 Glimepiride 4 mg PO DAILY 09/21/19 Lisinopril [Prinivil] 20 mg PO DAILY tablet 09/21/19 Amoxicillin/Potassium Clav [Augmentin 875-125 Tablet] 1 each PO BID #14 tablet 09/25/19 This patient is new to me today: No Emergency Visit: Yes ED Registration Date: 09/16/19 Care time: The patient presented to the Emergency Department on the above date and was hospitalized for further evaluation of their emergent condition. Critical Care patient: No - Discharge Referral Referred to [facility] Med P.C.: No ATTENDING PHYSICIAN STATEMENT I saw and evaluated the patient. I reviewed the resident's note and discussed the case with the resident. I agree with the resident's findings and plan as documented. SUBJECTIVE: OBJECTIVE: ASSESSMENT AND PLAN:
== END 2019-09-25 15:02 | disposition home health service (06) | DRG 720 ==
LOC: JER 09:49 → JERBED 16:47 → J6S 09-17 00:35
PROVIDERS: ADMIT Internal Medicine; ATTEND Internal Medicine
PROC: 0Y910ZZ Drainage of Left Buttock, Open Approach (ICD-10-PCS; principal; 2019-09-17)
DX: A41.9 Sepsis, unspecified organism (principal); L02.31 Cutaneous abscess of buttock; F10.20 Alcohol dependence, uncomplicated; F17.200 Nicotine dependence, unspecified, uncomplicated; I10 Essential (primary) hypertension; E78.5 Hyperlipidemia, unspecified; F13.2 Sedative, hypnotic or anxiolytic-related dependence; B19.20 Unspecified viral hepatitis C without hepatic coma; R16.1 Splenomegaly, not elsewhere classified; K40.90 Unilateral inguinal hernia, without obstruction or gangrene, not specified as recurrent; L73.2 Hidradenitis suppurativa; L03.317 Cellulitis of buttock; B95.1 Streptococcus, group B, as the cause of diseases classified elsewhere; E11.51 Type 2 diabetes mellitus with diabetic peripheral angiopathy without gangrene; L02.214 Cutaneous abscess of groin; E87.2 Acidosis
CPT/HCPCS: 36415; 71045-TC-FY; 71046-TC-FY; 74177-TC; 80048; 80053; 81003; 82728; 82803; 82962; 83036; 83540; 83550; 83605; 83735; 84100; 84466; 85025; 85027; 85730; 86850; 86900; 86901; 87040; 87070; 87076; 87086; 87186; 87205; 93005; 93010; 93306-TC; 99291; G0463-25; Q9967; U0003